=== PATIENT | male | born 1940 | race African-American/Black ===

== ENCOUNTER 2017-09-12 13:32 | Inpatient (IN) | payer MEDICARE, BC ==
[~2017-09-12 13:32] MED LIST: Iopamidol 370 76% 50 ML VIAL FS ONE
[2017-09-12 14:15] LABS: #Eosinphils 0.1 thou/uL (0.0-0.7); #Monocytes 0.6 thou/uL (0.11-0.59); #Neutrophils 3.2 thou/uL (1.40-6.50); %Basophils 0.5 % (0.0-1.0); %Lymphocytes 33.6 % (21.0-51.0); %Monocytes 10.8 % (0.0-10.0); Hematocrit 40.6 % (42.0-52.0); Mean Platelet Volume 7.8 fL (7.4-10.4); Red Blood Cell (RBC) Count 3.89 mill/uL (4.70-6.10); White Blood Cell (WBC) Count 5.9 thou/uL (4.8-10.8)
[2017-09-12 14:41] LABS: ALT (SGPT) 17 U/L (8-55); AST (SGOT) 27 U/L (5-34); Alkaline Phosphatase 80 U/L (40-150); Anion Gap 15 mmol/L (10-20); BUN (Urea Nitrogen) 58 mg/dL (8.4-25.7); Bilirubin, Total 0.3 mg/dL (0.2-1.2); Calc. Creatinine Clearance 0 mL/min (70-130); Calcium 9.6 mg/dL (7.8-10.44); Carbon Dioxide 19 mmol/L (23-31); Chloride 105 mmol/L (98-107); Estimated GFR-MDRD 26; Globulin 4.6 g/dL (2.4-3.5); Lipase 20 U/L (8-78); Protein, Total 8.6 g/dL (5.8-8.1)
[2017-09-12 21:04] LABS: Bilirubin Negative (Negative); Blood, Urine Negative (Negative); Glucose, Urine (Dipstick) Negative (Negative); Ketone, Urine Trace mg/dL (Negative); Nitrite Negative (Negative); Protein, Urine (Dipstick) Negative (Neg-Trace)
[2017-09-12 21:15] LABS: Amphetamine Not Detected (NotDetected); Methadone Not Detected (NotDetected); Methamphetamine Not Detected (NotDetected)
[2017-09-12] MEDS ORDERED: Dextrose 50% Abboject 50 ML SYRINGE ONE (21:45)
[2017-09-12] MEDS ORDERED: Sodium Bicarb 50 MEQ/50 ML Abboject 8.4% SYRINGE ONE (21:45)
[2017-09-12] MEDS ORDERED: Insulin Regular 300 UNITS/3 ML VIAL ONE (21:45)
[2017-09-12] MEDS ORDERED: Calcium Chloride 1 GM/10 ML Abboject SYRINGE ONE (21:47)
--- NOTE | 2017-09-12 22:23 | RAD ---
ACUTE ABDOMINAL SERIES: 09/12/17 PROVIDED CLINICAL HISTORY: Abdominal pain. FINDINGS: Comparison 09/22/04. The cardiac and mediastinal silhouette is within normal limits. No focal consolidation, pleural fluid or pneumothorax apparent. Supine and upright abdominal radiographs demonstrate a nonspecific bowel gas pattern. Density within the expected location of the stomach and duodenum is presumed on the basis of administered oral contr ast material. No evidence for pneumoperitoneum. No definite radiographic apparent urinary tract calcu li. Conspicuous vascular calcifications are seen. Degenerative changes are noted. IMPRESSION: 1. No evidence for an acute cardiopulmonary process. 2. Nonspecific bowel gas pattern. POS: [facility]
--- NOTE | 2017-09-12 23:05 | CT ---
CT OF THE ABDOMEN AND PELVIS 09/12/17 PROVIDED CLINICAL HISTORY: Abdominal distention. FINDINGS: Comparison is made with the study dated 08/31/14. The visualized lung bases are free of significant opacity. A small hiatal hernia is seen. Gallstones are noted within the gallbladder. The solid abdominal organs are suboptimally evaluated wi thout IV contrast material but demonstrate an unremarkable unenhanced CT appearance with the exceptio n of calcifications again seen involving the uncinate process of the pancreas compatible with sequela of prior pancreatitis. There is no bowel dilatation, inflammatory fat stranding, free fluid or free air apparent. Vascular calcification is noted involving the abdominal aorta and its branches including conspicuous vascular calcification involving the origin of the superior mesenteric artery. The osseous structures demonstrate no concerning osteoblastic or osteolytic lesions. IMPRESSION: 1. No evidence for an acute process. 2. Cholelithiasis. 3. Atherosclerosis including conspicuous calcification at the origin of the superior mesenteric artery. POS: [facility]
[2017-09-13] MEDS ORDERED: Mag-Al Plus 1200 MG/1200 MG/120 MG/30 ML UDCUP PO PRN (09:15)
[2017-09-13] MEDS ORDERED: hydrALAZINE 20 MG/ML VIAL SLOW IVP PRN (09:15)
[2017-09-13] MEDS ORDERED: Ondansetron HCl/PF 4 MG/2 ML Vial IVP PRN (09:15)
[2017-09-13] MEDS ORDERED: Heparin 5,000 UNITS/ML VIAL ONE (09:51)
[2017-09-13] MEDS: Sodium Chloride 0.9% 1,000 ML IV SCH ×2 (09:54→22:53)
[2017-09-13] MEDS: Heparin 5,000 UNITS/ML VIAL SC SCH ×2 (09:54→21:10)
[2017-09-13 13:10] LABS: Anion Gap 15 mmol/L (10-20); BUN (Urea Nitrogen) 46 mg/dL (8.4-25.7); Calc. Creatinine Clearance 0 mL/min (70-130); Carbon Dioxide 22 mmol/L (23-31); Chloride 108 mmol/L (98-107); Estimated GFR-MDRD 35
--- NOTE | 2017-09-13 14:03 | HP ---
PRIMARY CARE PHYSICIAN: Ashly Christina M.D. CHIEF COMPLAINT: Abdominal pain and vomiting. HISTORY OF PRESENT ILLNESS: Mr. Saucedo is a 77-year-old gentleman who lives in a long-term facility , the [facility] in [place], and was brought here after he was having abdominal pain and vomiting. The patient also appears to have history of dementia as well as possibly an undiagnosed psychiatric illness and is unable to give me a very coherent history. When I came to see him, he is sitting up on the side of the bed eating solid food. He appeared extremely comfortable and in his words he says that he believes the food was contaminated at the [place] and says that after he ate the food, he started having bloating and belching a lot and he says then he started vomiting and says he could not keep anything down, not in any water or anything. He says that they tried to give him water "out of the bathroom" and he says that is not very hygienic and as a result he got extremely sick. He sa id he felt feverish and he was brought to the emergency room for evaluation. He denies having any di arrhea and he says the abdominal pain has resolved and he says his last bowel movement was this morni ng and it was normal. There was no blood or any melena. Apparently, he is being admitted due to an elevation in his potassium level of 5.6 as well as his creatinine was also elevated. Otherwise, the patient appears extremely comfortable again sitting up on the stretcher eating. REVIEW OF SYSTEMS: Constitutional: There have been subjective fever and chills. No night sweats or weight loss. HEENT: No headaches, no dizziness, no visual changes. No sore throat, rhinorrhea, ne ck pain, or adenopathy. Pulmonary: No hemoptysis, no cough, no wheezing. Cardiovascular: He denie s any chest pain or shortness of breath. No PND, no orthopnea. Gastrointestinal: As per the histor y of present illness. In addition, he had no hematemesis and he did have some lower abdominal pain h e attributes to the retching and vomiting. Genitourinary: No urinary frequency, hematuria, or hesit trinity. Neurologic: No focal weakness or numbness. No seizures. Psychiatric: No symptoms of anxiet y or depression. Skin and Integument: No skin changes. No rash. PAST MEDICAL HISTORY: Significant for hypertension, dementia, history of gastric ulcer with a massiv e GI bleed, chronic kidney disease, chronic anemia, and bipolar disorder. PAST SURGICAL HISTORY: He says he has had surgery on his knee. ALLERGIES: No known drug allergies. FAMILY HISTORY: He says there is no history of any inheritable diseases. SOCIAL HISTORY: He is a former smoker, former drinker. He said he quit both 2 years ago. He is mar ried. He says he has "many children." MEDICATIONS: Taken from the ER record and they include Coreg 3.125 mg twice a day, aspirin 81 mg cody ly, multivitamin once a day, Namenda 10 mg twice daily, Protonix 40 mg daily, Zoloft 50 mg daily, me latonin 3 mg daily, docusate sodium 100 mg daily, Naprosyn 500 twice a day. PHYSICAL EXAMINATION: GENERAL: He is alert and oriented. He appears to be in no acute distress. He is well-developed. VITAL SIGNS: Blood pressure was 121/78, heart rate 94, respiratory rate of 18, temperature is 97.4. HEENT: Pupils are equal, round, and reactive. Extraocular muscles are intact. Sclerae are anicteri c. Throat; no erythema, no exudates. NECK: No adenopathy, no bruits. LUNGS: Clear to auscultation. There is no wheezing, no rales. CARDIOVASCULAR: He has a normal S1 and S2. I did not appreciate an S3 or S4. No murmurs, clicks, o r rubs. ABDOMEN: Obese, soft. It is nontender, nondistended. Positive for bowel sounds. No rebound, no gu arding. EXTREMITIES: They are warm and dry. Skin is actually a little bit excoriated. He has palpable dors esteban pedis pulses. NEUROLOGICALLY: The exam is nonfocal. LABORATORY RESULTS: Sodium 136, potassium 5.6, chloride is 105, CO2 is 19, BUN 58, creatinine 2.87, glucose is 131. White blood cell count 5.9, hemoglobin 13.4, hematocrit is 40.6, platelet count 153. Urine drug screen was negative. Urinalysis was essentially negative. He had a CT scan of the abdo men and pelvis, which was essentially negative. There was some evidence of cholelithiasis and some a rteriosclerosis involving the superior mesenteric artery. He also had an acute abdominal series whic h was essentially negative and negative for any obstruction. ASSESSMENT: This is a pleasant 77-year-old gentleman that was brought to the emergency room due to n ausea and vomiting as well as abdominal pain. The patient relates it to the food that he ate. It is possible that he might have suffered from some type of viral or bacterial infection, likely a gastro enteritis. It seems to me that the symptoms have resolved; however, he has been left with an acute r enal failure as well as hyperkalemia, likely as a result from prerenal azotemia from the vomiting. Yeni correa will be admitted to telemetry, started on IV hydration as I suspect that the acute renal failure is secondary to volume depletion. His potassium will be corrected. Nephrology has also been consulted to slasher tender helper in his management. We will place him on GI prophylaxis given his history of GI bleed in the past. We will need to reconcile and restart his medications with regarding to hypertension and we will hold off on any NSAIDs and otherwise once his renal function is stabilized and potassium is i mproved, I suspect he can be discharged home.
[2017-09-13] MEDS ORDERED: Famotidine/PF 20 mg/2ml Vial SLOW IVP SCH (21:00)
--- NOTE | 2017-09-13 23:11 | CON ---
DATE OF CONSULTATION: 09/13/2017 REASON FOR CONSULTATION: Hyperkalemia. HISTORY OF PRESENT ILLNESS: This is a 77-year-old gentleman who presented to the hospital today with abdominal pain and vomiting. The patient's potassium had increased to 5.67 and creatinine has incre ased to more than 2. He has had episodes of acute kidney injury in the past. The patient had poor p .o. intake. PAST MEDICAL HISTORY: Significant for hypertension, dementia, ulcer, chronic kidney disease, anemia, bipolar disorder, surgery including allergies. FAMILY HISTORY: Negative for ESRD. HOME MEDICATIONS: List reviewed. HOSPITAL MEDICATIONS: List reviewed. ALLERGIES: Reviewed. REVIEW OF SYSTEMS: A fifteen-point review of systems was performed and negative except positives not ed above. GENERAL: Weakness. HEAD: Headache. NECK: No swelling or lumps. NOSE: No epistaxis or discharge. EYES: No diplopia or pain. RESPIRATORY: Dyspnea. CARDIOVASCULAR: Chest pain. GASTROINTESTINAL: Nausea. /BRAND COORDINATOR: Hematuria. MUSCULOSKELETAL: No joint pain. NEUROPSYCHIATRIC SYSTEMS: No suicidal ideation. No ideation. SKIN: Denies any rash or ulcer. CONSTITUTIONAL: No fever or chills. PHYSICAL EXAMINATION: GENERAL: The patient is awake and alert. VITAL SIGNS: Afebrile, pulse 93, breathing at 16, blood pressure 180/66. GENERAL APPEARANCE AND MENTAL STATUS: Fair. HEAD/NECK: Normocephalic. Atraumatic. EYES: EOMI. No deformity. EARS: Clear. No ulcers. NOSE: Intact. No lesions. MOUTH: Clear. No discharge. THROAT: Clear. No exudate. LUNGS: Clear. No crackles. CARDIAC: S1, S2. No rub. ABDOMEN: Benign. BS+. GENITALIA/RECTUM: Ca absent. BACK/EXTREMITIES: Edema 0+ Ulcer- NEUROLOGICAL: Alert and motor intact. SKIN: Rash- Bruise- LYMPHATICS: Edema- Ulcer- LABORATORY DATA: Show potassium 5.6, creatinine 2.87. ASSESSMENT AND RECOMMENDATIONS: 1. Acute kidney injury with chronic kidney disease due to decreased effective arterial blood volume. Continue hydration. 2. Hyperkalemia. We will give Kayexalate. 3. Metabolic acidosis. We will start sodium bicarbonate. 4. Hypernatremia due to renal failure. No indication for dialysis. The patient had a renal ultraso und, which was reportedly negative.
[2017-09-14 04:42] LABS: Anion Gap 12 mmol/L (10-20); BUN (Urea Nitrogen) 35 mg/dL (8.4-25.7); Calc. Creatinine Clearance 0 mL/min (70-130); Carbon Dioxide 22 mmol/L (23-31); Chloride 108 mmol/L (98-107); Estimated GFR-MDRD 45
[2017-09-14 05:13] LABS: #Basophils 0.1 thou/uL (0.0-0.2); #Eosinphils 0.2 thou/uL (0.0-0.7); #Lymphocytes 2.3 thou/uL (1.20-3.40); #Monocytes 0.7 thou/uL (0.11-0.59); #Neutrophils 2.3 thou/uL (1.40-6.50); %Basophils 1.3 % (0.0-1.0); %Lymphocytes 41.9 % (21.0-51.0); %Monocytes 12.7 % (0.0-10.0); Hematocrit 34.6 % (42.0-52.0); Macrocytosis MODERATE=16-30 cells (100X) (0-5/hpf); White Blood Cell (WBC) Count 5.5 thou/uL (4.8-10.8)
--- NOTE | 2017-09-14 07:56 | PDOC.PN ---
- Subjective Encounter Start Date: 09/14/17 Encounter Start Time: 07:54 Mr. Saucedo was seen today in follow-up. He says he feels better, but he still had a few loose stools this morning. - Objective Resuscitation Status: Resuscitation Status FULL:Full Resuscitation MAR Reviewed: Yes Vital Signs & Weight: Vital Signs (12 hours) Temp Pulse Resp BP Pulse Ox 09/14/17 03:50 97.7 F 75 16 140/73 95 09/13/17 23:59 97.5 F L 85 16 136/82 94 L Result Diagrams: 09/14/17 03:40 09/14/17 03:40 Phys Exam - Physical Examination HEENT: PERRLA Respiratory: no wheezing, no rales, no rhonchi, clear to auscultation bilateral Cardiovascular: RRR, no significant murmur, no rub Gastrointestinal: soft, non-tender, positive bowel sounds Musculoskeletal: no edema Dx/Plan (1) Gastroenteritis presumed infectious Code(s): A09 - INFECTIOUS GASTROENTERITIS AND COLITIS, UNSPECIFIED Status: Acute (2) Hyperkalemia Code(s): E87.5 - HYPERKALEMIA Status: Acute (3) Acute renal failure (ARF) Status: Acute (4) Hypertension Code(s): I10 - ESSENTIAL (PRIMARY) HYPERTENSION Status: Acute (5) Bipolar disorder Code(s): F31.9 - BIPOLAR DISORDER, UNSPECIFIED Status: Acute - Plan * Gastroenteritis- suspect viral- improving * Acute on chronic kidney disease- improved * Hyperkalemia- resolved * HTN- blood pressure is stable * Likely back to [place] later today.
[2017-09-14] MEDS: Heparin 5,000 UNITS/ML VIAL SC SCH (08:58)
--- NOTE | 2017-09-14 10:46 | PRG ---
DATE OF SERVICE: 09/14/2017 SUBJECTIVE: This is a 77-year-old gentleman being seen for acute kidney injury. The patient denies any nausea, vomiting or chest pain. PHYSICAL EXAMINATION: GENERAL: Patient is awake, alert. VITAL SIGNS: Afebrile, pulse 80, breathing at 16, blood pressure 140/73. OBJECTIVE: See above. Awake, alert, in no acute distress. GENERAL APPEARANCE AND MENTAL STATUS: Fair. HEAD/NECK: Normocephalic. Atraumatic. EYES: EOMI. No deformity. EARS: Clear. No ulcers. NOSE: Intact. No lesions. MOUTH: Clear. No discharge. THROAT: Clear. No exudate. LUNGS: Clear. No crackles. CARDIAC: S1, S2. No rub. ABDOMEN: Benign. BS+. GENITALIA/RECTUM: Ca absent. BACK/EXTREMITIES: Edema 0+ Ulcer- NEUROLOGICAL: Alert and motor intact. SKIN: Rash- Bruise- LYMPHATICS: Edema- Ulcer- LABORATORY: Hemoglobin 11.3. ASSESSMENT AND RECOMMENDATIONS: 1. Acute kidney injury, improved. 2. Hyperkalemia, improved. 3. Metabolic acidosis, improved. No indication for dialysis. We will follow the patient's renal function closely.
[2017-09-14 12:50] VITALS: BP 134/68; TEMP 98.4
--- NOTE | 2017-09-14 13:04 | DIS ---
DATE OF ADMISSION: 09/12/2017 DATE OF DISCHARGE: 09/14/2017 PRIMARY CARE PHYSICIAN: Dr. Christina. DISCHARGE DISPOSITION: Home. PRIMARY DISCHARGE DIAGNOSES: 1. Gastroenteritis, likely presumed infectious. 2. Acute renal failure, secondary to #1. 3. Hyperkalemia, secondary to #1. 4. Dementia. 5. History of chronic kidney disease. 6. History of bipolar disorder. DISCHARGE MEDICATIONS: Pantoprazole 40 mg daily, multivitamin once daily, Megace 40 mg daily, and as pirin 81 mg a day. PROCEDURES DONE DURING THE ADMISSION: The patient had a CT scan of the abdomen and pelvis showing no evidence for any acute process. There were some cholelithiasis and atherosclerosis involving the or igin of the superior mesenteric artery. HOSPITAL COURSE: Mr. Saucedo is a pleasant 77-year-old gentleman, who was sent over from [facility] with intractable vomiting and abdominal pain. He was evaluated in the ER and found to have an elevated creatinine as well as potassium, and he was placed on observation for this. His po tassium was corrected and his renal function improved. His creatinine went from 2.8-1.7, which is cl ose to his baseline. He was asking to go home, and his symptoms had improved, and as such, he is rao ng discharged. He is to follow up with Dr. Cardenas in approximately 1 week to have a chemistry panel do ne at that time.
== END 2017-09-14 14:43 | DRG 683 ==
LOC: ERS 13:32 → ERHOLD 21:44 → ONC 09-13 14:49
PROVIDERS: ADMIT Internal Medicine; ATTEND Internal Medicine
DX: N17.9 Acute kidney failure, unspecified (principal); A09 Infectious gastroenteritis and colitis, unspecified; E87.0 Hyperosmolality and hypernatremia; E87.2 Acidosis; K55.1 Chronic vascular disorders of intestine; N18.9 Chronic kidney disease, unspecified; I12.9 Hypertensive chronic kidney disease with stage 1 through stage 4 chronic kidney disease, or unspecified chronic kidney disease; E87.5 Hyperkalemia; F03.90 Unspecified dementia, unspecified severity, without behavioral disturbance, psychotic disturbance, mood disturbance, and anxiety; E86.9 Volume depletion, unspecified; D64.9 Anemia, unspecified; Z87.891 Personal history of nicotine dependence; F31.9 Bipolar disorder, unspecified; K80.20 Calculus of gallbladder without cholecystitis without obstruction; Z87.01 Personal history of pneumonia (recurrent)
CPT/HCPCS: 36415; 74022; 74176; 80048; 80053; 80306; 81003; 83690; 85025; 93005; J1644; J1815; S0028

== ENCOUNTER 2018-10-11 06:50 | Emergency (ER) | payer MEDICARE, BC, OTHER ==
--- NOTE | 2018-10-11 08:58 | RAD ---
TWO VIEW SOFT TISSUE NECK: HISTORY: The patient has felt like a chain was in this throat connected to a pipe in stomach. Resolved with E MS. Hypertension. COMPARISON: None. FINDINGS: There is evidence of extensive calcification projecting anterior to the spine on the lateral projecti on. These calcifications may be associated with atherosclerotic disease, based upon the lateral_proj ection. Better interrogation with a postcontrast soft tissue neck CT or possibly even a CT angiogram of the neck is recommended. Correlation made with the postcontrast neck CT from 03/10/2016 does demo nstrate significant carotid atherosclerotic disease. There is no prevertebral soft tissue swelling. Visualized cervical spine vertebral body heights are maintained. There is no fracture. Multilevel d egenerative disk disease with loss of disk space height and osteophyte formation is noted. There is no radiopaque foreign body within the aerodigestive tract. Epiglottis has a normal caliber. IMPRESSION: 1. Calcifications as described above. The calcifications are presumed to be due to extensive athero sclerotic disease. Additional imaging as described above. 2. No radiopaque foreign body. If there is still concern, direct visualization is recommended. POS: [facility]
== END 2018-10-11 09:10 | disposition home or self-care (01) ==
LOC: ERS 06:50
DX: R09.89 Other specified symptoms and signs involving the circulatory and respiratory systems (principal); F41.9 Anxiety disorder, unspecified; F31.9 Bipolar disorder, unspecified; I49.9 Cardiac arrhythmia, unspecified; F03.90 Unspecified dementia, unspecified severity, without behavioral disturbance, psychotic disturbance, mood disturbance, and anxiety; I10 Essential (primary) hypertension; F17.290 Nicotine dependence, other tobacco product, uncomplicated
CPT/HCPCS: 70360

== ENCOUNTER 2018-10-13 00:10 | Emergency (ER) | payer MEDICARE, BC, OTHER ==
--- NOTE | 2018-10-13 08:42 | RAD ---
PORTABLE CHEST: Date: 10/13/18 PROVIDED CLINICAL HISTORY: Dyspnea. FINDINGS: Comparison with 05/02/16. Cardiac and mediastinal silhouette is unchanged in appearance. Bibasilar subsegmental atelectatic shahrzad nges are seen. No focal consolidation, pleural fluid, or pneumothorax apparent. IMPRESSION: No evidence for an acute cardiopulmonary process. POS: [facility]
== END 2018-10-13 03:53 | disposition home or self-care (01) ==
LOC: ERS 00:10
DX: R06.02 Shortness of breath (principal); I10 Essential (primary) hypertension; F41.9 Anxiety disorder, unspecified; F31.9 Bipolar disorder, unspecified; G30.9 Alzheimer's disease, unspecified; F02.80 Dementia in other diseases classified elsewhere, unspecified severity, without behavioral disturbance, psychotic disturbance, mood disturbance, and anxiety; Z87.891 Personal history of nicotine dependence
CPT/HCPCS: 71045; 87804; 93005

== ENCOUNTER 2018-10-13 18:43 | Emergency (ER) | payer MEDICARE, BC, MEDICAID ==
[~2018-10-13 18:43] MED LIST changes: +ISOVUE-370 76%-LOCM 1 ML ONE; -Iopamidol 370 76% 50 ML VIAL FS ONE
[2018-10-13] MEDS ORDERED: Lidocaine Viscous Sol 2% 15 ml UD Cup ONE (19:23)
[2018-10-13] MEDS ORDERED: Pantoprazole 40 MG VIAL ONE (19:23)
[2018-10-13] MEDS ORDERED: Mag-Al 1200 mg/1200 mg/30 ML UDCUP ONE (19:23)
--- NOTE | 2018-10-13 19:45 | RAD ---
PA AND LATERAL CHEST X-RAY 10/13/18 HISTORY: Chest pain and shortness of breath. COMPARISON: 10/13/18 at 1237 hours. FINDINGS: The mild linear parenchymal densities seen at each lung base are improved compared to the prior study . However, there is suggestion of mild increased interstitial densities seen in the right upper lung zone which were not appreciated on the prior exam. Developing infectious process cannot be entirely e xcluded. There is no consolidation or pleural fluid appreciated. There is an oval shaped calcificatio n overlying the left mid lung zone which is also seen on prior exam. Prior CT exam in 2004 demonstrat es a pleural based plaque at the lateral left chest which probably accounts for this finding. Vascula r calcifications are seen in the visualized abdominal aorta. The thoracic aorta remains ectatic. IMPRESSION: Mild nonspecific increased interstitial densities in the right upper lobe. Developing infectious proc ess cannot be entirely excluded. Followup chest x-ray is recommended. POS: [facility]
--- NOTE | 2018-10-13 19:49 | RAD ---
TWO VIEWS NECK SOFT TISSUES: 10/13/18 HISTORY: Chest pain and chest tightness. Neck pain with movement as well as difficulty swallowing. COMPARISON: 10/11/18. FINDINGS: again noted are prominent calcifications projecting anterior to the cervical spine on the lateral vie w similar to prior study and likely related to prominent vascular calcifications overlying this regio n. Degenerative changes are again seen in the cervical spine. The prevertebral soft tissues are withi n normal limits. The epiglottis has a normal appearance. No definite radiopaque foreign body is appre ciated on this exam. IMPRESSION: 1. Stable appearance of the neck soft tissues with prominent calcifications again noted anterior to the cervical spine and partially obscured due to osseous structures on the frontal view but are l ikely attributable to prominent vascular calcifications. Additional imaging could be performed for fu rther characterization if warranted. 2. No radiopaque foreign body is seen. Prevertebral soft tissues are within normal limits. POS: [facility]
[2018-10-13 19:58] LABS: #Basophils 0.1 thou/uL (0.0-0.2); #Eosinphils 0.1 thou/uL (0.0-0.7); #Lymphocytes 1.9 thou/uL (1.20-3.40); #Monocytes 0.7 thou/uL (0.11-0.59); #Neutrophils 2.8 thou/uL (1.40-6.50); %Basophils 0.9 % (0.0-1.0); %Eosinophils 1.9 % (0.0-10.0); %Lymphocytes 33.8 % (21.0-51.0); %Monocytes 12.1 % (0.0-10.0); %Neutrophils 51.3 % (42.0-75.0); Hemoglobin 12.3 g/dL (14.0-18.0); Mean Corpuscular HGB CONC 32.9 g/dL (32.0-36.0); Mean Corpuscular Hemoglobin 33.3 pg (27.0-31.0); Mean Platelet Volume 10.5 fL (7.4-10.4); Platelet Count 176 thou/uL (130-400); RBC Distribution Width 14.9 % (11.5-14.5); Red Blood Cell (RBC) Count 3.69 mill/uL (4.70-6.10); White Blood Cell (WBC) Count 5.5 thou/uL (4.8-10.8)
[2018-10-13 20:57] LABS: Albumin 3.8 g/dL (3.4-4.8)
[2018-10-13 20:58] LABS: Chloride 107 mmol/L (98-107)
[2018-10-13 20:59] LABS: Calcium 8.9 mg/dL (7.8-10.44); Potassium 4.4 mmol/L (3.5-5.1); Sodium 138 mmol/L (136-145)
[2018-10-13 21:00] LABS: Globulin 3.5 g/dL (2.4-3.5); Glucose 90 mg/dL (83-110); Protein, Total 7.3 g/dL (5.8-8.1)
[2018-10-13 21:01] LABS: Anion Gap 17 mmol/L (10-20); Carbon Dioxide 18 mmol/L (23-31)
[2018-10-13 21:02] LABS: Bilirubin, Total 0.5 mg/dL (0.2-1.2)
[2018-10-13 21:03] LABS: Alkaline Phosphatase 61 U/L (40-150); Calc. Creatinine Clearance 0 mL/min (70-130); Estimated GFR-MDRD 69
[2018-10-13 21:04] LABS: BUN (Urea Nitrogen) 15 mg/dL (8.4-25.7)
[2018-10-13 21:05] LABS: AST (SGOT) 22 U/L (5-34)
[2018-10-13 21:06] LABS: ALT (SGPT) 12 U/L (8-55); CK (CPK) 545 U/L (30-200)
--- NOTE | 2018-10-13 22:28 | CT ---
CT NECK WITH IV CONTRAST 10/13/18 HISTORY: Patient with chest tightness and difficulty swallowing for one week. Neck pain. COMPARISON: 03/10/16. FINDINGS: There is an area of asymmetric soft tissue prominence seen in a supraglottic location at the level of the cricoid cartilage posterior to the airway. This may be related to asymmetry in the mucosa in thi s region, but neoplastic process cannot be entirely excluded. Pharynx and hypopharynx otherwise demon strate a normal appearance. The bilateral submandibular and parotid glands have a symmetric appearance bilaterally. The thyroid gland is normal in appearance. There is a circumscribed superficial fat density structure anteriorly at the level of and just inferi or to the level of the hyoid bone which demonstrates fat density and is stable in size and appearance to the prior exam and may represent a small lipoma in this region. This measures 1.7 cm in greatest transverse dimension. No enlarged lymph nodes are seen throughout the neck bilaterally. Again noted are extensive and dense vascular calcifications involving the distal common carotid arter ies and at the carotid bifurcations and involving the proximal internal carotid arteries with probabl e significant degree of narrowing involving the origins and proximal internal carotid arteries. Chronic lung changes are again seen in the upper lung zones. Degenerative changes are again seen in the cervical spine. IMPRESSION: 1. Suggestion of asymmetry and soft tissue prominence at the level of the false cords seen poste rior to the airway and just superior to the cricoid cartilage. This may be related to mucosal promine nce and redundancy of the mucosa in this region, but a lesion related to a neoplastic process could n ot be entirely excluded. Direct visualization is suggested. 2. No evidence of lymphadenopathy. 3. Stable size and appearance of a superficial fat density lesion seen anterior to the hyoid bon e. 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 4. Extensive and dense vascular calcifications involving the origins and proximal internal carot id arteries bilaterally. There is limited evaluation of the lumen of the internal carotid arteries, b ut there is likely significant degree of narrowing present. This is a stable finding. Code T POS: [facility]
== END 2018-10-13 23:23 | disposition home or self-care (01) ==
LOC: ERS 18:43
DX: R13.10 Dysphagia, unspecified (principal); F03.90 Unspecified dementia, unspecified severity, without behavioral disturbance, psychotic disturbance, mood disturbance, and anxiety; F41.9 Anxiety disorder, unspecified; Z87.891 Personal history of nicotine dependence
CPT/HCPCS: 36415; 70360; 70492; 71045; 71046; 80053; 82550; 84484; 85025; 87804; 93005; 96361; 96374; C9113

== ENCOUNTER 2018-10-19 18:45 | Observation (INO) | payer MEDICARE, BC, MEDICAID ==
[2018-10-19 19:37] LABS: #Basophils 0.1 thou/uL (0.0-0.2); #Eosinphils 0.1 thou/uL (0.0-0.7); #Lymphocytes 1.9 thou/uL (1.20-3.40); #Monocytes 0.6 thou/uL (0.11-0.59); %Basophils 1.2 % (0.0-1.0); %Eosinophils 1.7 % (0.0-10.0); %Lymphocytes 33.9 % (21.0-51.0); %Monocytes 10.2 % (0.0-10.0); Hemoglobin 12.7 g/dL (14.0-18.0); Mean Corpuscular Hemoglobin 34.7 pg (27.0-31.0); Mean Platelet Volume 9.2 fL (7.4-10.4); Platelet Count 175 thou/uL (130-400); RBC Distribution Width 14.5 % (11.5-14.5); Red Blood Cell (RBC) Count 3.67 mill/uL (4.70-6.10); White Blood Cell (WBC) Count 5.7 thou/uL (4.8-10.8)
[2018-10-19 19:48] LABS: ALT (SGPT) 16 U/L (8-55); AST (SGOT) 21 U/L (5-34); Albumin 4.1 g/dL (3.4-4.8); Alkaline Phosphatase 68 U/L (40-150); Anion Gap 21 mmol/L (10-20); BUN (Urea Nitrogen) 18 mg/dL (8.4-25.7); Bilirubin, Total 0.4 mg/dL (0.2-1.2); Calc. Creatinine Clearance 0 mL/min (70-130); Calcium 9.4 mg/dL (7.8-10.44); Carbon Dioxide 18 mmol/L (23-31); Chloride 105 mmol/L (98-107); Estimated GFR-MDRD 45; Globulin 3.9 g/dL (2.4-3.5); Glucose 96 mg/dL (83-110); Potassium 3.9 mmol/L (3.5-5.1); Sodium 140 mmol/L (136-145)
[2018-10-19] MEDS ORDERED: Lorazepam 2 MG/ML VIAL ONE (20:05)
[2018-10-19 21:32] LABS: Bilirubin Moderate (Negative); Blood, Urine Negative (Negative); Clarity CLEAR (Clear); Glucose, Urine (Dipstick) Negative (Negative); Leukocyte Negative (Negative); Nitrite Negative (Negative); Protein, Urine (Dipstick) Trace mg/dL (Neg-Trace); Specific Gravity, Urine 1.022 (1.002-1.036); pH, Urine 5.5 (5.0-9.0)
[2018-10-19] MEDS ORDERED: Acetaminophen 325 MG TAB PO PRN (23:05)
[2018-10-19] MEDS ORDERED: Ondansetron ODT 4 MG TAB PO PRN (23:05)
--- NOTE | 2018-10-19 23:10 | PDOC.FPRHP ---
- History of Present Illness History of Present Illness: 78 yo M with PMH dementia presents for decreased PO intake 2/2 pain with swallowing and choking. Started 1 mo ago, has been seen multiple times for this complaint and pt says nobody has helped him. Since the he has refused to eat or take any medications. Patient says it feels like a spot on his throat "closes up", he chokes. Says breathing affects in some way, pt poor historian. Feels lump on neck, reports 17 lb weight loss in past month. Says he knows that people from [facility] are the ones causing this, trying to kill him. Also says he got a "new stomach" in [place] that was inserted without surgery. ED Course: Ativan, 1L - Allergies/Adverse Reactions Allergies Allergy/AdvReac Type Severity Reaction Status Date / Time No Known Drug Allergies Allergy Verified 10/20/18 01:20 - History PMHx: dementia, anxiety, heart palpitations PSHx: none FHx: none Social: Current smoker, drinks whiskey, no drug use. - Review of Systems General: reports: weight/appetite/sleep changes. denies: fever/chills Respiratory: denies: cough, shortness of breath Cardiovascular: denies: chest pain, palpitation Gastrointestinal: denies: nausea, vomiting, diarrhea Skin: denies: rashes Musculoskeletal: reports: pain (swallowing) Neurological: denies: syncope, weakness - Vital signs BP: 124/66 HR: 58 RR: 18 Tmax: 98.7 Pox: 98% on RA Wt: 76 kg - Physical Exam Constitutional: awake, alert and oriented (x3) HEENT: normocephalic and atraumatic, PERRLA, grossly normal vision, grossly normal hearing, other (dry mucus membranes) Neck: supple, trachea midline, no LAD, no thyromegaly, other (1 cm nodule R to midline, soft and mobile) Heart: RRR, normal S1/S2, no edema Lungs: CTAB, no respiratory distress Abdomen: soft, non-tender, bowel sounds present Musculoskeletal: normal structure, normal tone Neurological: no focal deficit Skin: no rash/lesions Heme/Lymphatic: no unusual bruising or bleeding Psychiatric: other (paranoid) FMR H&P: Results - Labs Result Diagrams: 10/19/18 19:20 10/19/18 19:20 Lab results: WBC 5.7 thou/uL (4.8-10.8) 10/19/18 19:20 Hgb 12.7 g/dL (14.0-18.0) L 10/19/18 19:20 Hct 38.6 % (42.0-52.0) L 10/19/18 19:20 MCV 105.0 fL (78.0-98.0) H 10/19/18 19:20 Plt Count 175 thou/uL (130-400) 10/19/18 19:20 Neutrophils % 53.0 % (42.0-75.0) 10/19/18 19:20 Sodium 140 mmol/L (136-145) 10/19/18 19:20 Potassium 3.9 mmol/L (3.5-5.1) 10/19/18 19:20 Chloride 105 mmol/L (98-107) 10/19/18 19:20 Carbon Dioxide 18 mmol/L (23-31) L 10/19/18 19:20 BUN 18 mg/dL (8.4-25.7) 10/19/18 19:20 Creatinine 1.77 mg/dL (0.7-1.3) H 10/19/18 19:20 Glucose 96 mg/dL (83-110) 10/19/18 19:20 Calcium 9.4 mg/dL (7.8-10.44) 10/19/18 19:20 Total Bilirubin 0.4 mg/dL (0.2-1.2) 10/19/18 19:20 AST 21 U/L (5-34) 10/19/18 19:20 ALT 16 U/L (8-55) 10/19/18 19:20 Alkaline Phosphatase 68 U/L (40-150) 10/19/18 19:20 Serum Total Protein 8.0 g/dL (5.8-8.1) 10/19/18 19:20 Albumin 4.1 g/dL (3.4-4.8) 10/19/18 19:20 Urine Ketones 40 mg/dL (Negative) H 10/19/18 21:18 Urine Blood Negative (Negative) 10/19/18 21:18 Urine Nitrite Negative (Negative) 10/19/18 21:18 Ur Leukocyte Esterase Negative (Negative) 10/19/18 21:18 FMR H&P: A/P - Problem List (1) KELLEY (acute kidney injury) Current Visit: Yes Status: Acute Code(s): N17.9 - ACUTE KIDNEY FAILURE, UNSPECIFIED (2) Lipoma Current Visit: Yes Status: Acute Code(s): D17.9 - BENIGN LIPOMATOUS NEOPLASM , UNSPECIFIED (3) Altered mental status Current Visit: No Status: Acute Code(s): R41.82 - ALTERED MENTAL STATUS, UNSPECIFIED (4) Dysphagia Current Visit: No Status: Acute Code(s): R13.10 - DYSPHAGIA, UNSPECIFIED (5) Presbyesophagus Current Visit: No Status: Acute Code(s): K22.8 - OTHER SPECIFIED DISEASES OF ESOPHAGUS - Plan KELLEY on CKD - Cr 1.77 (1.24 on last check). Likely 2/2 decreased PO intake - IVF LR @ 120 - monitor I/Os and expect improvement on am bmp Odynophagia - CT 10/13 showed mucosal thickening near cords. Directly visualized with laryngoscope today by ENT Dr. Guerin with no abnormality reported. CT also showed likely lipoma anterior to hyoid - in 2016 diagnosed with presbyesophagus by barium swallow and modified diet was recommended at that time - pt has refused food and medication for days - Speech evaluation pending. Failed bedside swallow so now NPO - possible that esophageal spasm could be component. Peppermint oil not available in pharmacy. Will give trial of PPI. - will need to get home med rec from daughter in am to see if any could contribute to esophageal discomfort/irritation - could consider repeat imaging vs ENT/GI consult pending speech eval AMS with hx of dementia - history of dementia but has not taken any home meds. Paranoia and delusions on exam today. Unknown baseline - sitter was requested for patient. 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 Patient does not know home medications and has not taken them for days regardless. Tobacco use - nicotine patch, encourage cessation Alcohol use - pt says he is not an alcoholic, he just adds whiskey to his coffee sometimes for flavor Diet: NPO Ppx: Lovenox Dispo: admit to medical for observation FMR H&P: Upper Level - Pertinent history 78 y/o M w/ PMHx of dementia presents for evaluation of altered mental status, combativeness, and parania at home per daughter's report from ER provider as daughter is no longer in room during interview. Per ER reports, patient was seen by ENT for mucosal thickening visualized near the false cords cords on prior ER visit CT scan (10/13) earlier this morning w/ laryngoscopy performed not showing any abnormality. Pt states he has not eaten or drank anything for a few days 2/2 pain from this. Reports being able to feel the nodule on his throat when he touches it. CT scan from 10/13 also notes a stable lipoma anterior to the hyoid bone. Also notes that people from [place] are coming her and doing this to people and that they are trying to kill him. - Pertinent findings BP 164/89 P 89 RR 18 O2sat 98% on RA Temp 98.5 degF Weight 81.7 kg WBC - 5.7 Hgb - 12.7 MCV - 105 Neut - 53% Na - 140 K - 3.9 Cl - 105 CO2 - 18 BUN - 18 Cr - 1.77 GEN: NAD, resting in bed comfortably HEENT: Normocephalic/atruamatic. Small rubbery, mobile nodule superior to thyroid cartilage, non-tender, no n-fluctuant CARD: RRR, no murmur/rubs or gallops PULM: CTA-b/l, no wheezes,rales or rhonci GI: Soft, non-ttp, BSx4 NEURO: CN 2-12 intact b/lb/l PSYCH: Paranoid delusions - Plan Date/Time: 10/19/18 2303 I, B. Lupillo Lazo MD, have evaluated this patient and agree with findings/plan as outlined by hospital intern resident. Pertinent changes/additions are listed here. 78 y/o M w/: 1) KELLEY on CKD likely 2/2 pre-renal disease w/ decreased PO intake - Will give IVF at [facility] and trend renal function w/ AM BMP's - Strict I/O's to monitor fluid status - Consult speech/ENT to eval for dysphagia causing decreased PO intake - Rubbery nodule on anterior neck consistent w/ lipoma seen on 10/13 CT scan - Thickening of mucosa seen on CT also likely 2/2 redundancy of tissue as there was no atypical lesions noted on direct visualization - Will place on Protonix as patient could be having silent reflux causing irritation and subsequent pain w/ swallowing - Will place on CLD w/ ensure supplemnts TID-WM 2) Odynophagia (Orophyryngeal vs esophageal - As noted above w/ speech eval and possible ENT consult - Encourage PO intake w/ CLD and Ensure enlive TID-WM - Pt's sxs seem to be more consistent w/ Orphyryngeal dysphagia w/ assocated coughing/aspiration feeling - However, Upon review of records, patient has hx of being admitted for similar sxs in the past and was found to have a presbyesophagus on barium swallow from . He was placed on a modified diet by speech at this time and did well with this - Will place on protonix given hx of alchohol abuse and possible reflux causing sxs - Consider consulting GI in the AM and will go ahead and start patient on peppermint oil before meals to aid w/ likely DAVID given hx of presbyesophagus. If this fails, patient may be candidate for CCB for relief. - Will also need to have med rec performed to r/o medications which could possibly be causing any irritant esophagitis - Pt will likely need repeat Barium swallow and possible MBS to further eval orophyrengeal vs esophageal pending speech path eval 3) Altered Mental Status - Reportedly patient stopped taking his home dementia medication - He is having sxs that seem consistent w/ paranoid schizophrenia w/ delusions of people from [place] trying to kill him - Will get medrec from daughter in the AM and try to give his home meds crushed w/ clears/softs as he has reportedly been well controlled on this in the past - Will consider speaking w/ Psych if needed for further reccomendations - Will admit to medical w/ sitter - No overt infection/toxin/focal neuro deficits pointing toward stroke, or electrolyte abnormalities which would explain pt's sxs. Assessment and Plan Discussed w/ Dr. Woodall who is in agreement.
[2018-10-20] MEDS: Lactated Ringer's 1,000 ML IV SCH ×3 (00:57→17:59)
[2018-10-20 01:48] LABS: Lactic Acid 1.7 mmol/L (0.5-2.2)
[2018-10-20 05:04] LABS: #Eosinphils 0.2 thou/uL (0.0-0.7); #Monocytes 0.6 thou/uL (0.11-0.59); #Neutrophils 1.9 thou/uL (1.40-6.50); %Eosinophils 4.2 % (0.0-10.0); %Lymphocytes 41.7 % (21.0-51.0); %Monocytes 12.9 % (0.0-10.0); %Neutrophils 40.3 % (42.0-75.0); Hemoglobin 11.4 g/dL (14.0-18.0); Mean Corpuscular HGB CONC 33.3 g/dL (32.0-36.0); Mean Corpuscular Hemoglobin 34.9 pg (27.0-31.0); Mean Platelet Volume 8.7 fL (7.4-10.4); Platelet Count 142 thou/uL (130-400); RBC Distribution Width 14.4 % (11.5-14.5); Red Blood Cell (RBC) Count 3.27 mill/uL (4.70-6.10); White Blood Cell (WBC) Count 4.7 thou/uL (4.8-10.8)
[2018-10-20 05:32] LABS: Anion Gap 15 mmol/L (10-20); BUN (Urea Nitrogen) 17 mg/dL (8.4-25.7); Calc. Creatinine Clearance 0 mL/min (70-130); Calcium 8.9 mg/dL (7.8-10.44); Carbon Dioxide 20 mmol/L (23-31); Chloride 106 mmol/L (98-107); Estimated GFR-MDRD 57; Glucose 82 mg/dL (83-110); Potassium 4.3 mmol/L (3.5-5.1); Sodium 137 mmol/L (136-145)
--- NOTE | 2018-10-20 05:58 | PDOC.FM ---
- Subjective Subjective: Patient complains of dysphagia this morning. Otherwise feeling well. Makes statements about the "doctors trying to kill me" at a previous hospital. - Objective Vital Signs & Weight: Vital Signs (12 hours) Temp Pulse Resp BP BP Pulse Ox 10/20/18 04:40 98.1 F 76 16 141/75 H 99 10/20/18 00:39 62 18 127/71 99 I&O: 10/18/18 10/19/18 10/20/18 06:59 06:59 06:59 Intake Total 628 Output Total 150 Balance 478 Result Diagrams: 10/20/18 04:37 10/20/18 04:37 Phys Exam - Physical Examination Constitutional: NAD HEENT: moist MMs Neck: supple, full ROM small soft mobile mass anterior neck Respiratory: no wheezing, clear to auscultation bilateral Cardiovascular: RRR, no significant murmur Gastrointestinal: soft, non-tender, no distention, positive bowel sounds Musculoskeletal: no edema, pulses present Neurological: non-focal, moves all 4 limbs Psychiatric: normal affect, A&O x 3 Skin: normal turgor, cap refill <2 seconds Dx/Plan (1) Tobacco abuse Code(s): Z72.0 - TOBACCO USE Status: Acute (2) KELLEY (acute kidney injury) Code(s): N17.9 - ACUTE KIDNEY FAILURE, UNSPECIFIED Status: Acute (3) Lipoma Code(s): D17.9 - BENIGN LIPOMATOUS NEOPLASM, UNSPECIFIED Status: Acute (4) Altered mental status Code(s): R41.82 - ALTERED MENTAL STATUS, UNSPECIFIED Status: Acute (5) Dysphagia Code(s): R13.10 - DYSPHAGIA, UNSPECIFIED Status: Acute (6) Presbyesophagus Code(s): K22.8 - OTHER SPECIFIED DISEASES OF ESOPHAGUS Status: Acute - Plan Plan: KELLEY on CKD - Cr 1.77 (1.24 on last check). Likely 2/2 prerenal disease with decreased PO intake - IVF LR @ 120 - monitor I/Os - AM BMP - consult speech/ENT to eval for dysphagia causing decreased PO intake Odynophagia - pt has refused food and medication for days - Thickening of mucosa seen on CT 10/13/18 also likely 2/2 redundancy of tissue as there was no atypical lesions noted on direct visualization with laryngoscope 10/19/[address] Guerin - Rubbery nodule on anterior neck consistent w/ lipoma seen on 10/13 CT scan - Upon review of records, patient has hx of being admitted for similar sxs in the past and was found to have a presbyesophagus on barium swallow from . He was placed on a modified diet by speech at this time and did well with this - Pt's sxs seem to be more consistent w/ Oropharyngeal dysphagia w/ assocated coughing/aspiration feeling - Will place on Protonix as patient could be having silent reflux causing irritation and subsequent pain w/ swallowing, hx of alcohol abuse - Encourage PO intake with CLD w/ ensure supplements TID-WM pending speech eval - Speech evaluation. Failed bedside swallow so now NPO -Recommended Modified barium swallow, pending (today) - consider ENT/GI consult - Will talk with Daughter about med rec ([facility] [phone]) AMS with hx of dementia - history of dementia but has not taken any home meds. Paranoia and delusions on exam today. Unknown baseline - sitter was requested for patient. 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 Macrocytosis -Check B12 and Folate -Possibly 2/2 to alcohol vs poor diet Anxiety - Hx of this. Patient does not know home medications and has not taken them for days regardless. Tobacco use - nicotine patch, encourage cessation Alcohol use - pt says he is not an alcoholic, he just adds whiskey to his coffee sometimes for flavor - MCV elevated, checking B12 and folate Diet: NPO Ppx: Lovenox Dispo: Pending results of modified barium swallow that will be done this afternoon. If everything is normal, most likely may be discharged today. Otherwise will need to be made inpatient and consider peg tube placement. Addendum - Attending - Attending Attestation Date/Time: 10/20/182010 I personally evaluated the patient at 1050 am and discussed the management with Dr. Houston. H&P reviewed and repeated by me. I agree with the History, Examination, Assessment and Plan documented above with any addition or exceptions noted below. KELLEY secondary to decreased po intake and potential odynophagia- modified barium swallow and diet per speech recs Paranoia secondary to dementia and not taking medications as prescribed-restart if passes swallow. Expect will need another day.
[2018-10-20 08:33] VITALS: BMI 22.6
[2018-10-20] MEDS: Nicotine 14 MG PATCH TD SCH (08:35)
[2018-10-20] MEDS: Enoxaparin Sodium 40 MG/0.4 ML SYRINGE SC SCH (08:35)
[2018-10-20] MEDS: Pantoprazole 40 MG VIAL IVP SCH (08:35)
[2018-10-20 12:40] LABS: Folate (Folic Acid) 10.1 ng/mL (7.0-31.4)
[2018-10-20] MEDS ORDERED: RisperDAL M-TAB 1 MG TAB SL SCH (14:15)
[2018-10-20] MEDS ORDERED: Labetalol HCl 100 MG/20 ML VIAL SLOW IVP PRN (14:18)
--- NOTE | 2018-10-20 15:44 | RAD ---
MODIFIED BARIUM SWALLOW WITH SPEECH THERAPIST: DATE: 10/20/2018. HISTORY: A 78-year-old male with: Dysphagia unspecified: R13.10. Feeding difficulties: R63.3. Rule out aspiration. FINDINGS: Jaws are edentulous. Premature free spillage into the vallecula. No penetration or aspiration with puree, thin liquid, and crackers. Adequate epiglottic inversion. IMPRESSION: No penetration or aspiration. POS: LUCIA
[2018-10-21] MEDS: Lactated Ringer's 1,000 ML IV SCH (02:31)
--- NOTE | 2018-10-21 05:33 | PDOC.FM ---
- Subjective Subjective: Patient feels well this morning, states he ate last night and his stomach felt a little funny but is feeling better. States suspicion over daughter, telling me I should not trust her. Discussed taking his home medications, patient states he will not take them. - Objective Vital Signs & Weight: Vital Signs (12 hours) Temp Pulse Resp BP Pulse Ox 10/21/18 03:45 98.7 F 71 14 152/70 H 100 10/20/18 23:37 98.4 F 67 16 144/63 H 98 10/20/18 20:09 97.5 F L 65 18 134/66 98 Weight Admit Weight 73.845 kg Weight 73.845 kg I&O: 10/19/18 10/20/18 10/21/18 06:59 06:59 06:59 Intake Total 628 2175 Output Total 150 325 Balance 478 1850 Result Diagrams: 10/21/18 07:43 10/21/18 07:43 Phys Exam - Physical Examination Constitutional: NAD HEENT: PERRLA, sclera anicteric, oral pharynx no lesions Neck: supple no LAD Respiratory: no wheezing, clear to auscultation bilateral Cardiovascular: RRR, no significant murmur Gastrointestinal: soft, non-tender, positive bowel sounds Musculoskeletal: no edema, pulses present Neurological: non-focal, moves all 4 limbs Psychiatric: normal affect, A&O x 3 Skin: normal turgor, cap refill <2 seconds Dx/Plan (1) Tobacco abuse Code(s): Z72.0 - TOBACCO USE Status: Acute (2) KELLEY (acute kidney injury) Code(s): N17.9 - ACUTE KIDNEY FAILURE, UNSPECIFIED Status: Acute (3) Lipoma Code(s): D17.9 - BENIGN LIPOMATOUS NEOPLASM, UNSPECIFIED Status: Acute (4) Altered mental status Code(s): R41.82 - ALTERED MENTAL STATUS, UNSPECIFIED Status: Acute (5) Dysphagia Code(s): R13.10 - DYSPHAGIA, UNSPECIFIED Status: Acute (6) Presbyesophagus Code(s): K22.8 - OTHER SPECIFIED DISEASES OF ESOPHAGUS Status: Acute - Plan Plan: KELLEY on CKD - Cr 1.77 -> 1.24. Likely 2/2 pre-renal disease with decreased PO intake - D/c IVF - monitor I/Os Odynophagia - pt has refused food and medication for days - Thickening of mucosa seen on CT 10/13/18 also likely 2/2 redundancy of tissue as there was no atypical lesions noted on direct visualization with laryngoscope 10/19/[address] Guerin - Rubbery nodule on anterior neck consistent w/ lipoma seen on 10/13 CT scan - Upon review of records, patient has hx of being admitted for similar sxs in the past and was found to have a presbyesophagus on barium swallow from . He was placed on a modified diet by speech at this time and did well with this - Pt's sxs seem to be more consistent w/ Oropharyngeal dysphagia w/ assocated coughing/aspiration feeling - Will place on Protonix as patient could be having silent reflux causing irritation and subsequent pain w/ swallowing, hx of alcohol abuse - Modified barium swallow negative for aspiration or penetration, safe to swallow, at overnight. AMS with hx of dementia - history of dementia but has not taken any home meds. Paranoia and delusions. Daughter says this is improved when he is on medication, but he has been off medication for month - restart memantine and aripiprazole - sitter was requested for patient. 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 Macrocytosis -Check B12 normal, folate low end of normal -Possibly 2/2 to alcohol vs poor diet -Encouraged multivitamin daily Anxiety - Hx of this. Patient was sertraline 50 mg daily - restarted at 25 mg daily. Tobacco use - nicotine patch, encourage cessation Alcohol use - pt says he is not an alcoholic, he just adds whiskey to his coffee sometimes for flavor - MCV elevated, folate low end of normal - start multivitamin Diet: NPO Ppx: Lovenox Dispo: most likely d/c to home today Addendum - Attending - Attending Attestation Date/Time: 10/21/18 9819 I personally evaluated the patient at 1050 am and discussed the management with Dr. Houston I agree with the History, Examination, Assessment and Plan documented above with any addition or exceptions noted below. Passed swallow study. Dementia with paranoia- has been off meds for a month- restarted sublingual risperdol. Stable for d/c home with daughter
[2018-10-21] MEDS ORDERED: Carvedilol 3.125 MG TAB PO SCH (08:00)
[2018-10-21 08:44] LABS: #Basophils 0.1 thou/uL (0.0-0.2); #Eosinphils 0.2 thou/uL (0.0-0.7); #Lymphocytes 2.2 thou/uL (1.20-3.40); #Monocytes 0.6 thou/uL (0.11-0.59); #Neutrophils 1.8 thou/uL (1.40-6.50); %Basophils 1.4 % (0.0-1.0); %Eosinophils 3.3 % (0.0-10.0); %Lymphocytes 45.7 % (21.0-51.0); %Monocytes 11.7 % (0.0-10.0); Hemoglobin 11.3 g/dL (14.0-18.0); Mean Corpuscular HGB CONC 32.9 g/dL (32.0-36.0); Mean Corpuscular Hemoglobin 34.3 pg (27.0-31.0); Mean Platelet Volume 8.9 fL (7.4-10.4); Platelet Count 135 thou/uL (130-400); RBC Distribution Width 14.1 % (11.5-14.5); White Blood Cell (WBC) Count 4.8 thou/uL (4.8-10.8)
[2018-10-21 08:54] LABS: Anion Gap 17 mmol/L (10-20); BUN (Urea Nitrogen) 7 mg/dL (8.4-25.7); Calc. Creatinine Clearance 57 mL/min (70-130); Calcium 8.7 mg/dL (7.8-10.44); Carbon Dioxide 19 mmol/L (23-31); Chloride 106 mmol/L (98-107); Estimated GFR-MDRD 76; Glucose 91 mg/dL (83-110); Sodium 138 mmol/L (136-145)
[2018-10-21] MEDS: Enoxaparin Sodium 40 MG/0.4 ML SYRINGE SC SCH (08:54)
[2018-10-21] MEDS: Nicotine 14 MG PATCH TD SCH (08:54)
[2018-10-21] MEDS: Pantoprazole 40 MG VIAL IVP SCH (08:58)
[2018-10-21] MEDS ORDERED: Aripiprazole 2 MG TAB PO SCH (09:00)
[2018-10-21] MEDS ORDERED: Multivitamin W/ Minerals 1 TAB PO SCH (09:00)
[2018-10-21] MEDS ORDERED: RisperDAL M-TAB 1 MG TAB SL SCH (09:00)
[2018-10-21 13:17] VITALS: BP 135/63; TEMP 97.3
[2018-10-22] MEDS ORDERED: RisperDAL M-TAB 1 MG TAB SL SCH (09:00)
--- NOTE | 2018-10-23 09:46 | DIS ---
DATE OF ADMISSION: 10/20/2018 DATE OF DISCHARGE: 10/21/2018 RESIDENT: Jaja Houston MD ADMITTING ATTENDING: Kerry Woodall MD DISCHARGE ATTENDING: Kerry oWodall MD CONSULTS: None. PROCEDURES: Speech modified barium swallow on 10/20/2018. IMPRESSION: No penetration or aspiration. PRIMARY DIAGNOSIS: Odynophagia. SECONDARY DIAGNOSES: 1. Acute kidney injury on chronic kidney disease. 2. Altered mental status with history of dementia. 3. Macrocytosis. 4. Anxiety. 5. Tobacco use. 6. Alcohol use. DISCHARGE MEDICATIONS: 1. Multivitamin with minerals one tab p.o. daily. 2. Risperdal M-Tab 1 mg sublingual daily. DISCONTINUED MEDICATIONS: 1. Sertraline 50 mg oral daily. 2. Memantine 10 mg oral daily. 3. Carvedilol 3.125 mg BID oral daily. HISTORY OF PRESENT ILLNESS/HOSPITAL COURSE: This is a 78-year-old male with a past medical history of dementia, who presented for decreased p.o. intake secondary to pain with swallowing. He states that his symptoms started one month ago. He has been seen multiple times for this complaint and patient states that nobody has helped him. Since the 13 of October, he had refused to eat. His daughter reports that he has not taken his prescribed HTN and psychotropic medications since last May or June. The patient stated it felt like a spot in his throat closed up and he was choking when he tried to eat anything. He said his breathing is affected in some way, however, he is a poor historian. He reports 17 pounds of weight loss in the past month. He also made paranoid statements like "the people from [place] are the ones causing this and doctors from previous hospital are trying to kill me." He also stated he had received "new stomach" in [place] that was inserted without surgery. CT neck was done for his dysphagia on 10/13/2018 that showed thickening of the mucosa, which was likely secondary to redundancy of tissue as a direct laryngoscope on 10/19/2018 by ENT, Dr. Guerin, showed no atypical lesions and was normal. The fleshy small mass on his anterior neck was consistent with lipoma seen on CT on 10/13/2018. Upon review of records, the patient had been admitted for similar symptoms in the past and was found to have presbyesophagus on barium swallow on 05/05/2016. He was placed on a modified diet by Speech at this time and did well with this. During his stay, a modified barium swallow was done which was negative for aspiration or penetration. The patient was told that it was safe to swallow and drink fluids. He then ate a meal after this without any difficulty. Altered mental status with history of dementia: The patient has a history of dementia, but has not been taking any of his home medications. He had paranoid thoughts about previous doctor at a hospital that he is trying to kill and then states that he will not take that medication. When asked what medication he was referring to, the patient would not say. He was refusing to take any of his medicines. However, he took a dissolvable under the tongue Risperdal without any issue. Also, one time, he did take his home medicines before leaving. However, as we are unsure if he would continue taking those medications outpatient, they were discontinued. Risperdal and a multivitamin were continued. Patient will need outpatient follow up to discuss restarting those medications as he has been off of them for at least 3 months, 2 /2 to his paranoia. Macrocytosis: His B12 was normal, however, his folate was on the low end of normal. This was thought to be possibly secondary to alcohol intake vs poor diet. Multivitamin was encouraged daily. DISPOSITION: Stable. DISCHARGE INSTRUCTIONS: 1. Location: Home. 2. Diet: As tolerated. 3. Activity: As tolerated. 4. Followup: Follow up with Dr. Pallavi Pierre within 1 week in [place]. Job ID: [id number] [facility]
== END 2018-10-21 13:43 | disposition home or self-care (01) ==
LOC: ERS 18:45 → 2SW 10-20 00:40
PROVIDERS: ADMIT Family Medicine; ATTEND Family Medicine
DX: R13.10 Dysphagia, unspecified (principal); N18.9 Chronic kidney disease, unspecified; N17.9 Acute kidney failure, unspecified; R41.82 Altered mental status, unspecified; D75.89 Other specified diseases of blood and blood-forming organs; F03.90 Unspecified dementia, unspecified severity, without behavioral disturbance, psychotic disturbance, mood disturbance, and anxiety; F41.9 Anxiety disorder, unspecified; D17.9 Benign lipomatous neoplasm, unspecified; K22.8 Other specified diseases of esophagus; F17.200 Nicotine dependence, unspecified, uncomplicated; Z79.899 Other long term (current) drug therapy
CPT/HCPCS: 74230; 80048 ×2; 80053; 81003; 82607; 82746; 83605; 85025 ×3; 87086; 93005; 96361 ×3; 96372 ×2; 96374; 96375; 96376; 99285; G0378 ×2; 36415; C9113; J1650; J2060

== ENCOUNTER 2018-10-29 13:46 | Observation (INO) | payer MEDICARE, BC, MEDICAID ==
[2018-10-29 14:31] LABS: Bilirubin Negative (Negative); Blood, Urine Negative (Negative); Clarity CLEAR (Clear); Glucose, Urine (Dipstick) Negative (Negative); Leukocyte Negative (Negative); Nitrite Negative (Negative); Protein, Urine (Dipstick) Negative (Neg-Trace); Specific Gravity, Urine 1.002 (1.002-1.036); Urobilinogen 0.2 mg/dL (0.2-1.0); pH, Urine 6.5 (5.0-9.0)
[2018-10-29 14:53] LABS: #Eosinphils 0.1 thou/uL (0.0-0.7); #Lymphocytes 1.6 thou/uL (1.20-3.40); #Monocytes 0.4 thou/uL (0.11-0.59); #Neutrophils 2.6 thou/uL (1.40-6.50); %Basophils 0.9 % (0.0-1.0); %Eosinophils 2.8 % (0.0-10.0); %Lymphocytes 33.4 % (21.0-51.0); %Monocytes 7.4 % (0.0-10.0); %Neutrophils 55.4 % (42.0-75.0); Mean Corpuscular HGB CONC 33.1 g/dL (32.0-36.0); Mean Corpuscular Hemoglobin 34.6 pg (27.0-31.0); Mean Platelet Volume 8.2 fL (7.4-10.4); Platelet Count 173 thou/uL (130-400); RBC Distribution Width 14.5 % (11.5-14.5); Red Blood Cell (RBC) Count 3.46 mill/uL (4.70-6.10); White Blood Cell (WBC) Count 4.7 thou/uL (4.8-10.8)
--- NOTE | 2018-10-29 14:58 | CT ---
CT BRAIN WITHOUT CONTRAST: HISTORY: Altered mental status. FINDINGS: Comparison is made with the exam of 05/02/2016. Changes of mild chronic small-vessel ischemic disease and mild cortical atrophy are again seen. No evidence of acute infarct, hemorrhage, midline shift, or abnormal extraaxial fluid collection is i dentified. The ventricular size is stable and the basilar cisterns are patent. The bony calvarium i s intact. There is mucosal disease in the paranasal sinuses. IMPRESSION: No CT evidence of acute intracranial process. POS: C
[2018-10-29 14:59] LABS: PTT 26.2 SEC (22.9-36.1); Prothrombin Time 12.8 SEC (12.0-14.7)
[2018-10-29 15:15] LABS: ALT (SGPT) 9 U/L (8-55); AST (SGOT) 18 U/L (5-34); Alkaline Phosphatase 60 U/L (40-150); Anion Gap 13 mmol/L (10-20); BUN (Urea Nitrogen) 14 mg/dL (8.4-25.7); Bilirubin, Total 0.2 mg/dL (0.2-1.2); Calc. Creatinine Clearance 0 mL/min (70-130); Calcium 9.2 mg/dL (7.8-10.44); Carbon Dioxide 23 mmol/L (23-31); Chloride 104 mmol/L (98-107); Estimated GFR-MDRD 69; Globulin 3.4 g/dL (2.4-3.5); Glucose 96 mg/dL (83-110); Protein, Total 7.4 g/dL (5.8-8.1); Sodium 136 mmol/L (136-145)
--- NOTE | 2018-10-29 16:10 | PDOC.FPRHP ---
- History of Present Illness Chief Complaint: AMS History of Present Illness: The patient is a 78YOM with a h/o dementia, CKD, anxiety and EtOH and tobacco use who presented to the ED via EMS with a CC of sudden onset SOB that he states occurred around 12:00 while he was sitting at home watching tv. The patient reports that his vocal cords occasionally close and stated he was "talking out of his head" throughout the entire interview. He was, however, A& Ox3 on questioning. The patient states that his SOB was not associated with any chest pain, cough, fever/chills, or nausea or vomiting. He did endorse some associated lightheadedness though stating that he felt like the room was spinning. He has no recollection of any events that occurred in the ambulance on the way to the hospital but does state that his had to call EMS because he was unable to talk. He also denies any associated focal numbness or weakness or any vision changes. Per EMS, they were contacted after receiving report that the patient had an episode of sudden onset confusion & was unable to speak. They stated that per the patient he felt like he was "under a spell." Per EMS patient was non-verbal and not interactive throughout transport, until pulling up to the ED after which he suddenly began talking again. They denied any seizure like-activity, but did report that the patient was incontinent of urine. Per EMS the patient was initially complaining of a headache and endorsed a slight headache on our exam as well. Patient reported a history of similar episodes previously and denied any h/o drug, EtOH, or heavy tobacco use. ED Course: 325 PO ASA - Allergies/Adverse Reactions Allergies Allergy/AdvReac Type Severity Reaction Status Date / Time No Known Drug Allergies Allergy Verified 10/20/18 01:20 - Home Medications Medication Instructions Recorded Confirmed Type Multivitamin W/ Minerals 1 tab PO DAILY #14 tab 10/21/18 10/30/18 Rx [Theragran M] RisperDAL M-TAB 1 mg SL DAILY #14 tab 10/21/18 10/30/18 Rx Acetaminophen [Tylenol Regular 650 mg PO Q4H PRN tab 10/30/18 Rx Strength] Aspirin [Ecotrin Low Strength] 81 mg PO DAILY #30 tab 10/30/18 Rx - History PMHx: per patient no PMH but per chart review, dementia, CKD, anxiety, odynophagia PSHx: None FHx: None per patient Social: Patient lives at home with his in [place], [place]. Denies any heavy EtOH or tobacco use and denies any h/o drug use. - Review of Systems General: denies: fever/chills Eyes: denies: vision changes ENT: reports: other (no sore throat but reports difficulty swallowing) Respiratory: reports: shortness of breath. denies: cough Cardiovascular: denies: chest pain, palpitation Gastrointestinal: denies: nausea, vomiting, diarrhea, abdominal pain Skin: denies: rashes, itching Musculoskeletal: denies: tenderness, swelling Neurological: denies: numbness, syncope, weakness Psychological: reports: anxiety, other (no visual hallucinations but endorses sensing things that others do not such as feeling like the floor is shaking or his bed). denies: depression - Vital signs BP: 155/90 HR: 88 RR: 22 Tmax: 97.6F Pox: 100% on RA Wt: 76.66kg - Physical Exam Constitutional: NAD, awake, alert and oriented, well developed HEENT: normocephalic and atraumatic, PERRLA, EOMI, conjunctiva clear, no scleral icterus, grossly normal vision, grossly normal hearing, MMM, oropharynx clear, other (no teeth) Neck: supple, FROM, trachea midline, no bruits Heart: RRR, normal S1/S2, no murmurs/rubs/gallops, no edema Lungs: CTAB, no respiratory distress, good air movement, no rales/rhonchi, no wheezing, no retractions Abdomen: soft, non-tender, bowel sounds present Musculoskeletal: normal structure, normal tone, ROM grossly normal Neurological: no focal deficit, CN II-XII intact, normal sensation, other ( proprioception intact) Skin: no rash/lesions, good turgor, capillary refill <2 seconds, no jaundice Heme/Lymphatic: no unusual bruising or bleeding, no purpura, no petechia Psychiatric: other (slightly paranoid mood and affect with poor recent and remote memory) FMR H&P: Results - Labs Result Diagrams: 10/29/18 14:43 10/29/18 14:43 Lab results: WBC 4.7 thou/uL (4.8-10.8) L 10/29/18 14:43 Hgb 12.0 g/dL (14.0-18.0) L 10/29/18 14:43 Hct 36.1 % (42.0-52.0) L 10/29/18 14:43 MCV 104.0 fL (78.0-98.0) H 10/29/18 14:43 Plt Count 173 thou/uL (130-400) 10/29/18 14:43 Neutrophils % 55.4 % (42.0-75.0) 10/29/18 14:43 Sodium 136 mmol/L (136-145) 10/29/18 14:43 Potassium 4.0 mmol/L (3.5-5.1) 10/29/18 14:43 Chloride 104 mmol/L (98-107) 10/29/18 14:43 Carbon Dioxide 23 mmol/L (23-31) 10/29/18 14:43 BUN 14 mg/dL (8.4-25.7) 10/29/18 14:43 Creatinine 1.23 mg/dL (0.7-1.3) 10/29/18 14:43 Glucose 96 mg/dL (83-110) 10/29/18 14:43 Calcium 9.2 mg/dL (7.8-10.44) 10/29/18 14:43 Total Bilirubin 0.2 mg/dL (0.2-1.2) 10/29/18 14:43 AST 18 U/L (5-34) 10/29/18 14:43 ALT 9 U/L (8-55) 10/29/18 14:43 Alkaline Phosphatase 60 U/L (40-150) 10/29/18 14:43 Serum Total Protein 7.4 g/dL (5.8-8.1) 10/29/18 14:43 Albumin 4.0 g/dL (3.4-4.8) 10/29/18 14:43 Urine Ketones Negative mg/dL (Negative) 10/29/18 14:07 Urine Blood Negative (Negative) 10/29/18 14:07 Urine Nitrite Negative (Negative) 10/29/18 14:07 Ur Leukocyte Esterase Negative (Negative) 10/29/18 14:07 Laboratory Tests 10/29/18 14:43 Troponin I Less than 0.010 - EKG Interpretation EKG: NSR - Radiology Interpretation CT scan - head Status: report reviewed by me (Changes of mild chronic small-vessel ischemic disease and mild cortical atrophy are again seen. No evidence of acute infarct , hemorrhage, midline shift, or abnormal extraaxial fluid collection is i dentified. The ventricular size is stable and the basilar cisterns are patent. The bony calvarium i s intact. There is mucosal disease in the paranasal sinuses.) FMR H&P: A/P - Problem List (1) Schizo-affective schizophrenia, chronic condition Status: Suspected Code(s): F25.8 - OTHER SCHIZOAFFECTIVE DISORDERS (2) CKD (chronic kidney disease) stage 2, GFR 60-89 ml/min Status: Acute Code(s): N18.2 - CHRONIC KIDNEY DISEASE, STAGE 2 (MILD) (3) Anxiety Status: Acute Code(s): F41.9 - ANXIETY DISORDER, UNSPECIFIED (4) History of odynophagia Status: Chronic Code(s): Z87.898 - PERSONAL HISTORY OF OTHER SPECIFIED CONDITIONS (5) History of alcohol abuse Status: Chronic Code(s): Z87.898 - PERSONAL HISTORY OF OTHER SPECIFIED CONDITIONS (6) Tobacco abuse Status: Chronic Code(s): Z72.0 - TOBACCO USE - Plan 78YOM brought in by EMS for a reported episode of AMS w/ inability to speak that resolved upon arriving to the ED. Suspected schizoaffective disorder vs. acute EtOH intoxication vs. possible drug intoxication: - Per chart review patient has a h/o EtOH use but sxs more suspicious for a chronic psychiatric disorder as patient was actually A&Ox3 on exam. - CT head negative for any acute IC process and EKG WNLs with a negative troponin. Vitals WNLs as well as WBC & UA making suspicion for possible infection very low. - Will obtain a CK, UDS, and plasma EtOH level to r/o any possibility of a sz vs. acute drug or alcohol intoxication. Will also consult CM for eval for possible psychiatric disorder that needs to be addressed. Patient was discharged on risperdal 1mg SL-QD. Will consider restarting & titrating up PRN for normal dose recommended for schizophrenia at 2-8mg QD. - Will continue to monitor closely on stroke obs overnight. CKD: - Aware, eGFR of 69 which is WNLs on admission. Anxiety: - Aware, patient states he takes no medications for this. Presbyesophagus: - Aware, patient had an extensive work-up during last hospital visit around 10/21 and was cleared for a regular diet. Dispo: Will monitor closely overnight and possibly d/c in the AM if medically cleared with close psychiatric follow-up Diet: regular IVFs: SL GI PPx: none DVT PPx: SCDs CODE STATUS: DNAR FMR H&P: Upper Level - Pertinent history History taken with assistance from ER record due to patient's not remembering what happened. 78M with history of recorded bipolar and bizarre delusion such as having a stomach placed into his body and people from [place] wanting to kill him, presents for altered mentation. He reportedly had onset of confusion and couldn' t speak and this was witnessed by his family while he was sitting on his couch, watching TV. EMS record found that he didn't speak until they approached the ER , when he became conversational. Discussion with patient, he state he doesn't remember anything that transpired. He denies issue chest pain, cough, fever/chills, or nausea or vomiting. Patient's number is [phone]. - Pertinent findings Gen: Alert, oriented x3, HEENT: Normocephalic, no conjunctival injection, grossly normal vision and hearing, neck supple CV: Regular pulse, 2+ radial pulse, no cyanosis Resp: Unlabored breathing, on room air, sating at 100% GI: Soft bowel, no tenderness Ext: No edema Neuro: No focal deficit, CN II-XII intact, normal tone, strength 5/5 throughout - Plan Date/Time: 10/29/18 1610 I, [Lowell Ly], have evaluated this patient and agree with findings/plan as outlined by safety intern resident. Pertinent changes/additions are listed here. 1. AMS: - Consider schizoaffective/bipolar disorder, seizure, acute drug intoxication, chronic disease - CT negative for acute processes. EKG WNL with negative trop. Normal vital and WBC - Plan to obtain CK, UDS and plasma alcohol. CM eval for possible outpatient treatment. Obtain HIV/RPR, B12/Folate - Med treatment with continuing home risperdal. - Patient expressed no desire for harm. 2. CKD: - GFR of 79. At baseline compared to previously 3. Presbyesophagus - Patient had a work up during last hospital visit and was clear for regular diet. 4. Macrocytic anemia - Will obtain B12/Folate. Addendum - Attending - Attending Attestation Date/Time: 10/29/18 1750 I personally evaluated the patient and discussed the management with Dr. Rodríguez and Dr. Edmond I agree with the History, Examination, Assessment and Plan documented above with any addition or exceptions noted below. 78 yo male with multiple medical conditions presents for evaluation of "a spell. " Patient AAO to T/P/E/P. Reports and episode of SOB at rest. Continues with paranoid delusions of people from [place] taking his organs along with other bazaar associations with his healthy. Past history of alcohol use. Currently denies symptoms. not present for questions. VS reviewed. Labs reviewed. Imaging reviewed. NAD. AAOx4 RRR. CTAB. NT/ND. BS present. Neuro grossly normal. FROM. No c/c/e. 1. Encephalopathy: Rule out TIA, metabolic, toxins, infections, etc. Appears to have underlying psychosis at baseline. Unsure if treated. Will follow up with . Place in obs. In the past HIV and RPR NR but would rescreen. Imaging negative. Monitor closely for worsening or evolving symptoms. Adjust home medications as needed. Felicia
[2018-10-29] MEDS ORDERED: Ondansetron ODT 4 MG TAB PO PRN (19:33)
[2018-10-29] MEDS ORDERED: Acetaminophen 325 MG TAB PO PRN (19:33)
[2018-10-29 19:48] LABS: Amphetamine Not Detected (NotDetected); Barbiturates Screen Not Detected (NotDetected); Benzodiazepine Screen Not Detected (NotDetected); Cocaine Metabolite Screen Not Detected (NotDetected); Medtox Control Line Valid? VALID (VALID); Medtox Reader # READER 4; Methadone Not Detected (NotDetected); Methamphetamine Not Detected (NotDetected); Opiate Screen Not Detected (NotDetected); Oxycodone Screen Not Detected (NotDetected); Phencyclidine (PCP) Not Detected (NotDetected); THC/Cannabinoid Screen Not Detected (NotDetected); Tricyclic Screen Not Detected (NotDetected)
[2018-10-29 20:17] LABS: HIV (1/2) Antibody/Antigen Non-Reactive (NonReactive); HIV 1/2 INDEX 0.09 S/CO (<1.00)
[2018-10-29 20:39] LABS: Syphilis Antibody Index 12.06 S/CO (<1.00 Non-Reactive)
[2018-10-29 20:50] VITALS: BMI 23.1
[2018-10-29 22:11] LABS: Syphilis Antibody INDETERMINATE (Nonreactive); Syphilis Titer Non-Reactive (Negative)
--- NOTE | 2018-10-30 06:16 | PDOC.FM ---
- Subjective Subjective: NAEO. Per chart review patient was refusing blood draws this AM. Stated he "had some medical training and he has had 9 tubes of blood drawn and no fluids." Stated he "was going home today." Denies any headache, chest pain, focal weakness or numbness, or visual or auditory hallucinations on exam. - Objective MAR Reviewed: Yes Vital Signs & Weight: Vital Signs (12 hours) Temp Pulse Resp BP Pulse Ox 10/30/18 04:00 98.7 F 78 18 156/82 H 97 10/30/18 00:00 98.3 F 84 18 149/79 H 99 Weight Weight 75.296 kg I&O: 10/28/18 10/29/18 10/30/18 06:59 06:59 06:59 Intake Total 480 Balance 480 Result Diagrams: 10/29/18 14:43 10/29/18 14:43 Phys Exam - Physical Examination Constitutional: NAD HEENT: moist MMs, sclera anicteric Neck: supple, full ROM Respiratory: no wheezing, no rales, no rhonchi, clear to auscultation bilateral Cardiovascular: RRR, no significant murmur Gastrointestinal: positive bowel sounds Neurological: non-focal, moves all 4 limbs Psychiatric: normal affect, A&O x 3 Skin: no rash, normal turgor Dx/Plan (1) Schizo-affective schizophrenia, chronic condition Code(s): F25.8 - OTHER SCHIZOAFFECTIVE DISORDERS Status: Suspected (2) CKD (chronic kidney disease) stage 2, GFR 60-89 ml/min Code(s): N18.2 - CHRONIC KIDNEY DISEASE, STAGE 2 (MILD) Status: Acute (3) Anxiety Code(s): F41.9 - ANXIETY DISORDER, UNSPECIFIED Status: Acute (4) History of odynophagia Code(s): Z87.898 - PERSONAL HISTORY OF OTHER SPECIFIED CONDITIONS Status: Chronic (5) History of alcohol abuse Code(s): Z87.898 - PERSONAL HISTORY OF OTHER SPECIFIED CONDITIONS Status: Chronic (6) Tobacco abuse Code(s): Z72.0 - TOBACCO USE Status: Chronic - Plan Plan: 78YOM brought in by EMS for a reported episode of AMS w/ inability to speak that resolved upon arriving to the ED. Suspected schizoaffective disorder vs. acute EtOH intoxication vs. possible drug intoxication: - Per chart review patient has a h/o EtOH use but sxs more suspicious for a chronic psychiatric disorder as patient was actually A&Ox3 on exam. - CT head negative for any acute IC process and EKG WNLs with a negative troponin. Vitals WNLs as well as WBC & UA making suspicion for possible infection very low. - CK slightly elevated with a negative UDS but and plasma EtOH level elevated at 40. - CM consulted to contact [facility] for eval for possible psychiatric disorder that needs to be addressed. Patient was discharged on risperdal 1mg SL-QD during last hospitalization. - Will resume risperdal this AM & titrate up PRN for normal dose recommended for schizophrenia at 2-8mg QD. - Will ensure close follow-up with PCP upon discharge as patient will likely need a psychiatric referral. CKD: - Aware, eGFR of 69 which is within the patient's baseline on admission. Anxiety: - Aware, patient states he takes no medications for this. Presbyesophagus: - Aware, patient had an extensive work-up during last hospital visit around 10/21 and was cleared for a regular diet. Dispo: Will possibly d/c later today since only significant test was an elevated blood EtOH level. Will recommend close psychiatric follow-up. Diet: regular IVFs: SL GI PPx: none DVT PPx: SCDs CODE STATUS: DNAR
[2018-10-30 08:08] VITALS: BP 137/80; TEMP 98.6
[2018-10-30] MEDS ORDERED: RisperDAL M-TAB 1 MG TAB SL SCH ×3 (09:00)
[2018-10-30] MEDS ORDERED: Multivitamin W/ Minerals 1 TAB PO SCH (09:00)
--- NOTE | 2018-10-30 12:42 | PRG ---
DATE OF SERVICE: 10/30/2018 SUBJECTIVE: Mr. Saucedo is a very talkative 78-year-old black man, who was admitted with a possible expressive aphasia. However, in closer discussion and examination, he has a perfectly normal physical exam. No neurological deficits and is talking profusely. He possibly has a history of some type of psychiatric disorder and this likely accounted for his relative speechlessness in the ambulance on the way to the hospital yesterday. We have strongly urged and recommended psychiatric re-evaluation and we will continue with his Chaitanya. Job ID: [id number]
--- NOTE | 2018-10-31 14:20 | DIS ---
DATE OF ADMISSION: 10/29/2018 DATE OF DISCHARGE: 10/30/2018 RESIDENT: Amie Rodríguez MD ADMITTING ATTENDING: Lauren Perry MD DISCHARGE ATTENDING: Dane Wu MD CONSULTS: None. PROCEDURES: Brain CT on 10/29/2018 which showed no acute intracranial process. PRIMARY DIAGNOSIS: Suspected schizoaffective schizophrenia. SECONDARY DIAGNOSES: 1. Presbyesophagus. 2. Chronic kidney disease, stage 2. 3. Anxiety. 4. Tobacco abuse. 5. Alcohol abuse. DISCHARGE MEDICATIONS: 1. Multivitamin 1 tab p.o. daily. 2. Risperdal 1 mg sublingual daily. 3. Acetaminophen 650 mg p.o. every 4 hours p.r.n. 4. Aspirin 81 mg p.o. daily. DISCONTINUED MEDICATIONS: None. HOSPITAL COURSE: The patient is a 78-year-old gentleman with a past medical history significant for dementia, CKD, anxiety, & alcohol and tobacco use who presented to the emergency department via EMS with a chief complaint of sudden onset shortness of breath that he stated occurred around approximately 1200 on the day of presentation. Per EMS, the patient's called them to come take the patient to the emergency department after an episode of aphasia and unresponsiveness. Of note, EMS reported that the patient did not speak and was unresponsive for the entire ambulance ride but immediately came to and began to talk upon parking at the hospital. The patient reported to EMS that he felt like he was "under a spell." On examination in the emergency department, the patient's vitals were noted to be within normal limits and his physical exam was completely within normal limits. He was noted; however, to have delusional thoughts of physicians in [place] who he reported attempted to kill him. He also stated multiple time throughout the entire interview that he was "talking out of his head" and endorsed feeling as if the floor in the ED room was shaking. However, the patient was A and O x3 and denied any visual or auditory hallucinations upon questioning. A CT of the head was obtained which was within normal limits and routine lab work including a CBC, PT, INR, CMP, CK and troponins were all obtained, all of which were negative. A UA was also negative for any signs of infection. UDS was negative for any illicit substances. However, his serum plasma alcohol level was noted to be 40. The patient was therefore admitted for close observation overnight and the following morning he denied any recurrent aphasic episodes and stated he was ready to go home. Thus, due to the low suspicion that his reported aphasia was 2/2 an actual ischemic event, the patient was cleared for discharge home and instructed to follow up with his primary care provider, Dr. Pallavi Pierre, within 1 day of discharge. DISPOSITION: Stable. DISCHARGE INSTRUCTIONS: 1. Location: Home. 2. Diet: Heart healthy diet. 3. Activity: As tolerated. No restrictions. 4. Follow-up: The patient was instructed to follow up with his primary care provider, Dr. Pallavi Pierre, within 1 day of discharge. Job ID: [id number] [facility]
== END 2018-10-30 12:56 | disposition home or self-care (01) ==
LOC: ERS 13:46 → 2SE 18:49
PROVIDERS: ADMIT Student in an Organized Health Care Education/Training Program; ATTEND Student in an Organized Health Care Education/Training Program
DX: R41.82 Altered mental status, unspecified (principal); N18.2 Chronic kidney disease, stage 2 (mild); F41.9 Anxiety disorder, unspecified; F17.200 Nicotine dependence, unspecified, uncomplicated; F10.10 Alcohol abuse, uncomplicated; K22.8 Other specified diseases of esophagus; F03.90 Unspecified dementia, unspecified severity, without behavioral disturbance, psychotic disturbance, mood disturbance, and anxiety; D53.9 Nutritional anemia, unspecified; Z66 Do not resuscitate
CPT/HCPCS: 70450; 80053; 80306; 80307; 81003; 82550; 84484 ×2; 85025; 85610; 85730; 86593; 86780; 87389; 93005; 97139; 99285; G0378 ×2; 36415

== ENCOUNTER 2018-11-09 23:38 | Emergency (ER) | payer MEDICARE, BC, MEDICAID ==
[2018-11-10 00:16] LABS: Hemoglobin 11.3 g/dL (14.0-18.0); Mean Corpuscular Hemoglobin 34.3 pg (27.0-31.0); Mean Platelet Volume 7.9 fL (7.4-10.4); Platelet Count 206 thou/uL (130-400); RBC Distribution Width 14.4 % (11.5-14.5); Red Blood Cell (RBC) Count 3.31 mill/uL (4.70-6.10); White Blood Cell (WBC) Count 5.5 thou/uL (4.8-10.8)
[2018-11-10 00:25] LABS: ALT (SGPT) 7 U/L (8-55); AST (SGOT) 16 U/L (5-34); Albumin 3.9 g/dL (3.4-4.8); Alkaline Phosphatase 60 U/L (40-150); Anion Gap 16 mmol/L (10-20); BUN (Urea Nitrogen) 19 mg/dL (8.4-25.7); Bilirubin, Total Less than 0.2 mg/dL (0.2-1.2); CK (CPK) 185 U/L (30-200); Calc. Creatinine Clearance 0 mL/min (70-130); Calcium 9.1 mg/dL (7.8-10.44); Carbon Dioxide 18 mmol/L (23-31); Chloride 105 mmol/L (98-107); Estimated GFR-MDRD 56; Globulin 3.7 g/dL (2.4-3.5); Glucose 102 mg/dL (83-110); Potassium 4.7 mmol/L (3.5-5.1); Protein, Total 7.6 g/dL (5.8-8.1); Sodium 134 mmol/L (136-145)
[2018-11-10 00:46] LABS: Eosinophils 6 % (0-10); Lymphocytes 53 % (21-51); MDiff Complete? YES; Monocytes 11 % (0-10); Neutrophil 29 % (42-75); Reactive Lymphocytes 1 % (0-10)
--- NOTE | 2018-11-10 07:28 | CT ---
CT BRAIN WITHOUT CONTRAST: Date: 11/09/18 HISTORY: Altered mental status. FINDINGS: Comparison made with exam of 10/29/18. Changes of cortical atrophy and chronic small vessel ischemic disease are again seen. The ventricular size is stable and the basilar cisterns are patent. No evidence of acute infarct, hemorrhage, midline shift, or abnormal extra-axial fluid collections ar e seen. The bony calvarium is intact. There is mucosal disease in the paranasal sinuses. IMPRESSION: No CT evidence of acute intracranial process. POS: [facility]
== END 2018-11-10 02:01 | disposition home or self-care (01) ==
LOC: ERS 23:38
DX: R41.82 Altered mental status, unspecified (principal); I49.9 Cardiac arrhythmia, unspecified; F41.9 Anxiety disorder, unspecified; F03.90 Unspecified dementia, unspecified severity, without behavioral disturbance, psychotic disturbance, mood disturbance, and anxiety; F17.290 Nicotine dependence, other tobacco product, uncomplicated
CPT/HCPCS: 70450; 80053; 82550; 85025; 93005

== ENCOUNTER 2019-01-21 16:29 | Emergency (ER) | payer MEDICARE, BC, MEDICAID ==
[2019-01-21 17:02] LABS: Bilirubin Negative (Negative); Blood, Urine Negative (Negative); Clarity CLEAR (Clear); Glucose, Urine (Dipstick) Negative (Negative); Leukocyte Negative (Negative); Nitrite Negative (Negative); Protein, Urine (Dipstick) Negative (Neg-Trace); Specific Gravity, Urine 1.009 (1.002-1.036); Urobilinogen 0.2 mg/dL (0.2-1.0); pH, Urine 6.5 (5.0-9.0)
--- NOTE | 2019-01-21 17:56 | CT ---
CT brain noncontrast: HISTORY: 78-year-old male with altered mental status and confusion FINDINGS: There is no evidence of acute intra-axial or extra-axial hemorrhage. There is no midline shift or any other mass effect. There is no extra-axial fluid collection. There is no evidence of obstructive hydrocephalus. Calvarium is intact. IMPRESSION: No acute intracranial findings.
[2019-01-21 18:06] LABS: Hemoglobin 11.6 g/dL (14.0-18.0); Mean Corpuscular HGB CONC 32.5 g/dL (32.0-36.0); Mean Corpuscular Hemoglobin 34.5 pg (27.0-31.0); Mean Platelet Volume 7.6 fL (7.4-10.4); Platelet Count 164 thou/uL (130-400); RBC Distribution Width 13.6 % (11.5-14.5); Red Blood Cell (RBC) Count 3.36 mill/uL (4.70-6.10); White Blood Cell (WBC) Count 4.7 thou/uL (4.8-10.8)
--- NOTE | 2019-01-21 18:15 | RAD ---
Radiograph chest one view: HISTORY: chest pain FINDINGS: No cardiomegaly, pulmonary edema, or consolidation. No pneumothorax. IMPRESSION: No acute cardiopulmonary findings.
[2019-01-21 18:30] LABS: Amphetamine Not Detected (NotDetected); Barbiturates Screen Not Detected (NotDetected); Benzodiazepine Screen Not Detected (NotDetected); Cocaine Metabolite Screen Not Detected (NotDetected); Medtox Control Line Valid? VALID (VALID); Medtox Reader # READER 4; Methadone Not Detected (NotDetected); Methamphetamine Not Detected (NotDetected); Opiate Screen Not Detected (NotDetected); Oxycodone Screen Not Detected (NotDetected); Phencyclidine (PCP) Not Detected (NotDetected); THC/Cannabinoid Screen Not Detected (NotDetected); Tricyclic Screen Detected (NotDetected)
[2019-01-21 18:31] LABS: #Basophils 0.1 thou/uL (0.0-0.2); #Eosinphils 0.2 thou/uL (0.0-0.7); #Lymphocytes 1.7 thou/uL (1.20-3.40); #Monocytes 0.5 thou/uL (0.11-0.59); #Neutrophils 2.2 thou/uL (1.40-6.50); %Basophils 1.2 % (0.0-1.0); %Eosinophils 4.6 % (0.0-10.0); %Lymphocytes 35.5 % (21.0-51.0); %Monocytes 11.4 % (0.0-10.0); %Neutrophils 47.3 % (42.0-75.0); ALT (SGPT) 13 U/L (8-55); AST (SGOT) 18 U/L (5-34); Acetaminophen Less than 6.0 mcg/mL (10.0-30.0); Alcohol Less than 10 mg/dL (Less than 10); Alkaline Phosphatase 56 U/L (40-150); Anion Gap 11 mmol/L (10-20); BUN (Urea Nitrogen) 24 mg/dL (8.4-25.7); Bilirubin, Total 0.5 mg/dL (0.2-1.2); Calc. Creatinine Clearance 0 mL/min (70-130); Calcium 9.3 mg/dL (7.8-10.44); Carbon Dioxide 22 mmol/L (23-31); Chloride 105 mmol/L (98-107); Estimated GFR-MDRD 52; Globulin 3.3 g/dL (2.4-3.5); Glucose 94 mg/dL (83-110); Lipase 22 U/L (8-78); MDiff Complete? YES; Macrocytosis SLIGHT = 6-15 cells (100X) (0-5/hpf); Platelet Morphology Comment Appears Adequate; Potassium 4.3 mmol/L (3.5-5.1); Protein, Total 7.3 g/dL (5.8-8.1); Salicylate Less than 8.0 mg/dL (15.0-30.0); Sodium 134 mmol/L (136-145)
[2019-01-21] MEDS ORDERED: Sucralfate 1 GM/10 ML UDCUP ONE (19:19)
== END 2019-01-21 19:39 | disposition home or self-care (01) ==
LOC: ERS 16:29
DX: F03.90 Unspecified dementia, unspecified severity, without behavioral disturbance, psychotic disturbance, mood disturbance, and anxiety (principal); I49.9 Cardiac arrhythmia, unspecified; F41.9 Anxiety disorder, unspecified; Z87.891 Personal history of nicotine dependence
CPT/HCPCS: 36415; 70450; 71045; 80053; 80306; 80307; 81003; 83605; 83690; 84443; 84484; 85025; 93005

== ENCOUNTER 2019-09-03 19:50 | Emergency (ER) | payer MEDICARE, BC, MEDICAID ==
[2019-09-03 22:09] LABS: ALT (SGPT) 9 U/L (8-55); AST (SGOT) 16 U/L (5-34); Albumin 4.1 g/dL (3.4-4.8); Alkaline Phosphatase 48 U/L (40-110); Anion Gap 13 mmol/L (10-20); BUN (Urea Nitrogen) 19 mg/dL (8.4-25.7); Bilirubin, Total 0.5 mg/dL (0.2-1.2); Calc. Creatinine Clearance 0 mL/min (70-130); Carbon Dioxide 24 mmol/L (23-31); Chloride 104 mmol/L (98-107); Estimated GFR-MDRD 50; Globulin 3.2 g/dL (2.4-3.5); Glucose 97 mg/dL (83-110); Magnesium 1.8 mg/dL (1.6-2.6); Potassium 4.5 mmol/L (3.5-5.1); Protein, Total 7.3 g/dL (5.8-8.1); Sodium 136 mmol/L (136-145)
[2019-09-03 22:13] LABS: Hemoglobin 11.6 g/dL (14.0-18.0); Mean Corpuscular HGB CONC 33.7 g/dL (32.0-36.0); Mean Corpuscular Hemoglobin 36.1 pg (27.0-31.0); Mean Platelet Volume 7.9 fL (7.4-10.4); Platelet Count 156 thou/uL (130-400); RBC Distribution Width 12.4 % (11.5-14.5); Red Blood Cell (RBC) Count 3.21 mill/uL (4.70-6.10); White Blood Cell (WBC) Count 4.9 thou/uL (4.8-10.8)
[2019-09-03 22:14] LABS: #Eosinphils 0.1 thou/uL (0.0-0.7); #Lymphocytes 1.6 thou/uL (1.20-3.40); #Monocytes 0.7 thou/uL (0.11-0.59); #Neutrophils 2.5 thou/uL (1.40-6.50); %Basophils 0.8 % (0.0-1.0); %Eosinophils 2.8 % (0.0-10.0); %Lymphocytes 33.2 % (21.0-51.0); %Monocytes 13.3 % (0.0-10.0); %Neutrophils 49.9 % (42.0-75.0)
[2019-09-03 22:31] LABS: Bilirubin Negative (Negative); Blood, Urine Negative (Negative); Clarity Clear (Clear); Glucose, Urine (Dipstick) Normal (Negative); Leukocyte Negative Leu/uL (Negative); Nitrite Negative (Negative); Protein, Urine (Dipstick) Negative (Neg-Trace); Urobilinogen Normal mg/dL (Less than 2)
[2019-09-03 22:45] LABS: Macrocytosis SLIGHT = 6-15 cells (100X) (0-5/hpf)
== END 2019-09-04 00:02 | disposition home or self-care (01) ==
LOC: ERS 19:50
DX: F03.90 Unspecified dementia, unspecified severity, without behavioral disturbance, psychotic disturbance, mood disturbance, and anxiety (principal); I49.9 Cardiac arrhythmia, unspecified; F41.9 Anxiety disorder, unspecified; F17.290 Nicotine dependence, other tobacco product, uncomplicated
CPT/HCPCS: 36415; 80053; 81003; 83735; 84443; 85025; 93005

== ENCOUNTER 2023-11-06 13:02 | Inpatient (IN) | payer MEDICARE, BC, MEDICAID ==
[2023-11-06 14:14] LABS: #Eosinphils 0.3 thou/uL (0.0-0.7); #Monocytes 0.6 thou/uL (0.11-0.59); #Neutrophils 2.2 thou/uL (1.40-6.50); %Basophils 0.7 % (0.0-1.0); %Eosinophils 5.4 % (0.0-10.0); %Lymphocytes 41.6 % (21.0-51.0); %Monocytes 11.4 % (0.0-10.0); %Neutrophils 40.7 % (42.0-75.0); Hematocrit 32.6 % (42.0-52.0); Mean Corpuscular HGB CONC 33.7 g/dL (32.0-36.0); Mean Corpuscular Hemoglobin 34.6 pg (27.0-31.0); Mean Corpuscular Volume 102.5 fl (78.0-98.0); Mean Platelet Volume 10.7 fL (7.4-10.4); Platelet Count 145 10x3/uL (130-400); RBC Distribution Width 15.2 % (11.5-14.5); Red Blood Cell (RBC) Count 3.18 mill/uL (4.70-6.10); White Blood Cell (WBC) Count 5.4 10x3/uL (4.8-10.8)
[2023-11-06 14:49] LABS: Troponin I Less than 0.010 ng/mL (< 0.028)
[2023-11-06 14:54] LABS: Acetaminophen Less than 10 mcg/mL (10.0-30.0); Alcohol Less than 10.0 mg/dL (Less than 10); Lipase 15 U/L (8-78); Magnesium 1.9 mg/dL (1.6-2.6); Salicylate Less than 8.0 mg/dL (15.0-30.0)
[2023-11-06 14:58] LABS: ALT (SGPT) Less than 7 U/L (8-55); AST (SGOT) 18 U/L (5-34); Alkaline Phosphatase 62 U/L (40-110); Anion Gap 16 mmol/L (10-20); BUN (Urea Nitrogen) 29 mg/dL (8.4-25.7); Bilirubin, Total 0.6 mg/dL (0.2-1.2); Calc. Creatinine Clearance 0 mL/min (70-130); Carbon Dioxide 19 mmol/L (23-31); Chloride 105 mmol/L (98-107); Estimated GFR 31; Globulin 3.2 g/dL (2.4-3.5); Glucose 108 mg/dL (83-110); Potassium 4.6 mmol/L (3.5-5.1); Protein, Total 7.2 g/dL (5.8-8.1); Sodium 135 mmol/L (136-145)
[2023-11-06 17:06] LABS: Bacteria/HPF None Seen HPF (None Seen); Bilirubin Negative (Negative); Blood, Urine Negative (Negative); CAUTI Indications for Culture Alt mental st,lethar; Clarity Clear (Clear); Glucose, Urine (Dipstick) Normal (Negative); Ketone, Urine Trace mg/dL (Negative); Leukocyte Negative Leu/uL (Negative); Nitrite Negative (Negative); Protein, Urine (Dipstick) Negative (Neg-Trace); RBC/HPF 0-3 HPF (0-3); Specific Gravity, Urine 1.015 (1.002-1.036); Squamous Epithelial 0-3 HPF (0-3); WBC/HPF 0-3 HPF (0-3); pH, Urine 5.5 (5.0-9.0)
[2023-11-06 17:08] LABS: Urine Culture Reflex No No
[2023-11-06 17:15] LABS: Amphetamine Not Detected (NotDetected); Barbiturates Screen Not Detected (NotDetected); Benzodiazepine Screen Not Detected (NotDetected); Cocaine Metabolite Screen Not Detected (NotDetected); Methadone Not Detected (NotDetected); Methamphetamine Not Detected (NotDetected); Opiate Screen Not Detected (NotDetected); Oxycodone Screen Not Detected (NotDetected); Phencyclidine (PCP) Not Detected (NotDetected); THC/Cannabinoid Screen Not Detected (NotDetected); Tricyclic Screen Not Detected (NotDetected)
[2023-11-06] MEDS ORDERED: Guaifenesin DM 100-10/5 ML UDCUP PO PRN (17:31)
[2023-11-06] MEDS ORDERED: Bisacodyl 5 MG TAB PO PRN (17:31)
[2023-11-06] MEDS ORDERED: Calcium Carbonate 500 MG ChewTAB PO PRN (17:31)
[2023-11-06] MEDS ORDERED: Ondansetron PF 4 MG/2 ML Vial IVP PRN (17:31)
[2023-11-06] MEDS ORDERED: Acetaminophen 325 MG TAB PO PRN (17:31)
[2023-11-06] MEDS ORDERED: Senokot S 8.6-50 MG TAB PO PRN (17:31)
[2023-11-06] MEDS ORDERED: HYDROcodone/Acetaminophen 5/325 mg Tablet PO PRN (17:31)
[2023-11-06] MEDS ORDERED: Azithromycin 500 MG VIAL ONE (21:09)
[2023-11-06] MEDS ORDERED: Sodium Chloride 0.9% 100 ML ONE (21:09)
[2023-11-06] MEDS ORDERED: cefTRIAXone (ROCEPHIN) 1 GM VIAL ONE (21:10)
[2023-11-06] MEDS: Sodium Chloride 0.9% 1,000 ML IV SCH (21:40)
[2023-11-06] MEDS: cefTRIAXone\\ROCEPHIN 1 GM in Sodium Chloride 0.9% 100 ML IVPB SCH (21:48)
[2023-11-07] MEDS: Azithromycin 500 MG in Sodium Chloride 0.9% 250 ML 250 ML IVPB SCH ×2 (02:35→02:46)
[2023-11-07] MEDS: Famotidine 20 MG TAB PO SCH ×2 (02:38→02:47)
[2023-11-07 06:03] LABS: #Eosinphils 0.3 thou/uL (0.0-0.7); #Monocytes 0.8 thou/uL (0.11-0.59); #Neutrophils 2.7 thou/uL (1.40-6.50); %Basophils 0.4 % (0.0-1.0); %Lymphocytes 43.7 % (21.0-51.0); %Monocytes 12.1 % (0.0-10.0); %Neutrophils 39.7 % (42.0-75.0); Hematocrit 32.2 % (42.0-52.0); Hemoglobin 10.5 g/dL (14.0-18.0); Mean Corpuscular HGB CONC 32.6 g/dL (32.0-36.0); Mean Corpuscular Hemoglobin 33.3 pg (27.0-31.0); Mean Corpuscular Volume 102.2 fl (78.0-98.0); Mean Platelet Volume 11.1 fL (7.4-10.4); Platelet Count 150 10x3/uL (130-400); RBC Distribution Width 15.2 % (11.5-14.5); Red Blood Cell (RBC) Count 3.15 mill/uL (4.70-6.10); White Blood Cell (WBC) Count 6.8 10x3/uL (4.8-10.8)
[2023-11-07 06:30] LABS: ALT (SGPT) 8 U/L (8-55); AST (SGOT) 18 U/L (5-34); Albumin 3.8 g/dL (3.4-4.8); Alkaline Phosphatase 62 U/L (40-110); Anion Gap 16 mmol/L (10-20); BUN (Urea Nitrogen) 22 mg/dL (8.4-25.7); Bilirubin, Total 0.6 mg/dL (0.2-1.2); Calc. Creatinine Clearance 34 mL/min (70-130); Calcium 8.9 mg/dL (7.8-10.44); Carbon Dioxide 18 mmol/L (23-31); Chloride 107 mmol/L (98-107); Estimated GFR 39; Globulin 3.4 g/dL (2.4-3.5); Glucose 86 mg/dL (83-110); Potassium 4.3 mmol/L (3.5-5.1); Protein, Total 7.2 g/dL (5.8-8.1); Sodium 137 mmol/L (136-145)
[2023-11-07] MEDS ORDERED: hydrALAZINE 25 MG TAB PO PRN (08:38)
[2023-11-07] MEDS: Enoxaparin 40 MG (0.4 mL) SYRINGE SC SCH (09:22)
[2023-11-07] MEDS: FLU VACC QS2023(65UP)/MF59C/PF 60 MCG/0.5 ML SYRINGE IM ONE (09:24)
[2023-11-07] MEDS: Lorazepam 2 MG/ML VIAL SLOW IVP PRN (17:00)
[2023-11-07] MEDS: Sodium Chloride 0.9% 1,000 ML IV SCH (17:04)
[2023-11-07] MEDS: QUEtiapine 25 MG TAB PO SCH (21:38)
[2023-11-08] MEDS ORDERED: Famotidine 20 MG TAB PO SCH (09:00)
[2023-11-08] MEDS: Aspirin 81 mg Enteric Coated Tablet PO SCH (09:29)
[2023-11-08] MEDS: Pantoprazole 40 MG VIAL IVP SCH (09:30)
[2023-11-08] MEDS: clonazePAM 0.5 MG TAB PO SCH (09:48)
[2023-11-08] MEDS: Memantine 10 MG TAB PO SCH (09:48)
[2023-11-08] MEDS: QUEtiapine 25 MG TAB PO SCH (09:48)
[2023-11-08] MEDS: Citalopram 20 MG TAB PO SCH (09:49)
[2023-11-08] MEDS: Amlodipine 5 MG TAB PO SCH (09:49)
[2023-11-09 05:47] LABS: #Eosinphils 0.3 thou/uL (0.0-0.7); #Monocytes 0.7 thou/uL (0.11-0.59); #Neutrophils 2.4 thou/uL (1.40-6.50); %Basophils 0.6 % (0.0-1.0); %Eosinophils 4.9 % (0.0-10.0); %Lymphocytes 45.2 % (21.0-51.0); %Monocytes 11.4 % (0.0-10.0); %Neutrophils 37.7 % (42.0-75.0); Hematocrit 32.7 % (42.0-52.0); Hemoglobin 10.7 g/dL (14.0-18.0); Mean Corpuscular HGB CONC 32.7 g/dL (32.0-36.0); Mean Corpuscular Volume 100.9 fl (78.0-98.0); Mean Platelet Volume 10.9 fL (7.4-10.4); Platelet Count 149 10x3/uL (130-400); RBC Distribution Width 14.6 % (11.5-14.5); Red Blood Cell (RBC) Count 3.24 mill/uL (4.70-6.10); White Blood Cell (WBC) Count 6.3 10x3/uL (4.8-10.8)
[2023-11-09 06:10] LABS: Anion Gap 16 mmol/L (10-20); BUN (Urea Nitrogen) 11 mg/dL (8.4-25.7); Calc. Creatinine Clearance 42 mL/min (70-130); Calcium 8.8 mg/dL (7.8-10.44); Carbon Dioxide 18 mmol/L (23-31); Chloride 107 mmol/L (98-107); Estimated GFR 52; Glucose 92 mg/dL (83-110); Sodium 137 mmol/L (136-145)
[2023-11-10 04:51] LABS: #Eosinphils 0.3 thou/uL (0.0-0.7); #Monocytes 0.6 thou/uL (0.11-0.59); #Neutrophils 2.2 thou/uL (1.40-6.50); %Basophils 0.6 % (0.0-1.0); %Eosinophils 6.4 % (0.0-10.0); %Lymphocytes 41.1 % (21.0-51.0); %Monocytes 10.4 % (0.0-10.0); %Neutrophils 41.3 % (42.0-75.0); Hematocrit 32.3 % (42.0-52.0); Hemoglobin 10.8 g/dL (14.0-18.0); Mean Corpuscular HGB CONC 33.4 g/dL (32.0-36.0); Mean Corpuscular Volume 101.6 fl (78.0-98.0); Mean Platelet Volume 10.2 fL (7.4-10.4); Platelet Count 147 10x3/uL (130-400); RBC Distribution Width 14.7 % (11.5-14.5); Red Blood Cell (RBC) Count 3.18 mill/uL (4.70-6.10); White Blood Cell (WBC) Count 5.3 10x3/uL (4.8-10.8)
[2023-11-10 05:17] LABS: Anion Gap 13 mmol/L (10-20); BUN (Urea Nitrogen) 11 mg/dL (8.4-25.7); Calc. Creatinine Clearance 43 mL/min (70-130); Calcium 8.6 mg/dL (7.8-10.44); Carbon Dioxide 21 mmol/L (23-31); Chloride 106 mmol/L (98-107); Estimated GFR 54; Glucose 75 mg/dL (83-110); Sodium 136 mmol/L (136-145)
[2023-11-11] MEDS: Cefdinir 300 MG CAP PO SCH (08:30)
[2023-11-11] MEDS: Saccharomyces boulardii 250 MG CAP PO SCH (08:32)
[2023-11-13] MEDS: Amlodipine 5 MG TAB PO SCH (08:33)
[2023-11-14 10:19] VITALS: BMI 20.9
[2023-11-15] MEDS: Mirtazapine 15 MG TAB PO SCH (20:28)
[2023-11-16] MEDS: Citalopram 10 MG TAB PO SCH (08:08)
[2023-11-17 08:21] VITALS: BP 113/71; TEMP 97.4
== END 2023-11-17 15:37 | DRG 177 ==
LOC: ERS 13:02 → ERHOLD 17:31 → 2NO 11-07 01:52 → T4-A 11-10 16:26
PROVIDERS: ADMIT Internal Medicine; ATTEND Family Medicine
DX: J69.0 Pneumonitis due to inhalation of food and vomit (principal); G93.41 Metabolic encephalopathy; F03.94 Unspecified dementia, unspecified severity, with anxiety; N17.9 Acute kidney failure, unspecified; F05 Delirium due to known physiological condition; F03.918 Unspecified dementia, unspecified severity, with other behavioral disturbance; I12.9 Hypertensive chronic kidney disease with stage 1 through stage 4 chronic kidney disease, or unspecified chronic kidney disease; K80.20 Calculus of gallbladder without cholecystitis without obstruction; R13.10 Dysphagia, unspecified; N18.2 Chronic kidney disease, stage 2 (mild); F10.97 Alcohol use, unspecified with alcohol-induced persisting dementia; R62.7 Adult failure to thrive; Z66 Do not resuscitate; Z68.21 Body mass index [BMI] 21.0-21.9, adult; Z78.1 Physical restraint status; Z79.82 Long term (current) use of aspirin; Z79.899 Other long term (current) drug therapy
CPT/HCPCS: 36415; 70450; 71045; 74176; 80048; 80053; 80306; 80307; 81001; 82140; 83690; 83735; 84145; 84443; 84484; 85025; 87040; 93005; C9113; J0456; J0696; J1650; J2060; J3490; J7050